=== PATIENT | male | born 1950 | race Caucasian/White ===

== ENCOUNTER → 2023-03-30 | Outpatient (CLI) | payer MEDICARE, OTHER, SELFPAY ==
--- NOTE | 2023-03-30 10:12 | EKG12_ITS ---
Test Reason : PRE OP Blood Pressure : / mmHG Vent. Rate : 069 BPM Atrial Rate : 069 BPM P-R Int : 128 ms QRS Dur : 134 ms QT Int : 428 ms P-R-T Axes : 083 -57 078 degrees QTc Int : 458 ms Normal sinus rhythm Right bundle branch block Left anterior fascicular block Bifascicular block Septal infarct , age undetermined Abnormal ECG Confirmed by BETSY SALCEDO, DAVID ([id number]), purchase request editor RAJINDER IRELAND ([id number]) on 04/03/2023 8:31:30 AM Referred By: Garrick Dixon Confirmed By:GIGI MEYER MD
[2023-03-30 11:24] LABS: Hematocrit 39.2 % (40-54); Hemoglobin 13.6 g/dL (13.0-16.5); Mean Corp Hgb Conc 34.7 g/dL (32-36); Mean Corpuscular Hgb 33.6 pg (27.0-32.0); Mean Corpuscular Volume 96.8 fL (80-94); Mean Platelet Vol. 9.2 fl (6.2-12.0); Platelet Count 222 K/mm3 (150-450); RBC Distribution Width SD 43.1 fl (35.1-43.9); Red Blood Count 4.05 M/mm3 (4.6-6.2); White Blood Count 10.9 K/mm3 (4.4-11.0)
[2023-03-30 11:53] LABS: Anion Gap 6 (5-15); BUN 19 mg/dL (7-18); BUN/Creat Ratio 18.8 RATIO (10-20); Calcium,Total 9.2 mg/dL (8.5-10.1); Chloride 104 mmol/L (98-107); Creatinine, Serum 1.01 mg/dL (0.70-1.30); EST Glomerular Filtration Rate 77 mL/min (>60); Est Glom Filt Rate - Afr Amer 93 mL/min (>60); Glucose 140 mg/dL (74-106); Potassium 3.9 mmol/L (3.5-5.1); Sodium Level 136 mmol/L (136-145)
== END | disposition home or self-care (01) ==
PROVIDERS: PCP Family Medicine; Referring Provider Urology; Visit Provider Urology
DX: Z01.810 Encounter for preprocedural cardiovascular examination (principal); Z01.812 Encounter for preprocedural laboratory examination
CPT/HCPCS: 36415; 80048; 85027; 93005

== ENCOUNTER → 2023-04-28 | Outpatient (CLI) | payer MEDICARE, OTHER, SELFPAY ==
--- NOTE | 2023-04-28 18:30 | CT_ITS ---
EXAM: CT ABDOMEN AND PELVIS WITHOUT AND WITH INTRAVENOUS CONTRAST CLINICAL INDICATION: BLADDER CANCER, HEMATURIA TECHNIQUE: Helically acquired images were obtained of the abdomen and pelvis without and with intravenous contrast. This CT exam was performed using one or more of the following dose reduction techniques: automated exposure control, adjustment of the mA and/or kV according to patient size, and/or use of iterative reconstruction technique. CONTRAST: IV-100 mL IsoVue 300 COMPARISON: No relevant prior studies available. FINDINGS: LOWER THORAX: Coronary artery calcifications. Lung bases are clear. No cardiomegaly. No significant pericardial effusion. ABDOMEN: LIVER: No significant abnormality. Homogeneous. No focal mass. GALLBLADDER AND BILE DUCTS: No significant abnormality. No calcified gallstones. No gallbladder distention or wall edema. No intra- or extrahepatic biliary ductal dilation. PANCREAS: No significant abnormality. No focal cystic or solid mass. SPLEEN: Splenic granulomas. Otherwise, normal spleen. ADRENALS: 7 mm low-attenuation lesion of the left adrenal gland is consistent with an adenoma. ACR White Paper guidelines (Lincoln et al. JACR 2017; 14(8):1896-5515) suggest no follow-up is necessary. KIDNEYS AND URETERS: No significant abnormality. Normal renal size and position. No hydronephrosis. STOMACH AND BOWEL: No bowel wall thickening or bowel obstruction.. PELVIS: APPENDIX: No evidence of acute appendicitis. BLADDER: Urinary bladder wall thickening, more focally anteriorly where it measures at least 1.8 cm in thickness likely consistent with the given history of bladder carcinoma. REPRODUCTIVE: Normal as visualized. No mass. ABDOMEN and PELVIS: INTRAPERITONEAL SPACE: No significant abnormality. No ascites or other fluid collection. No free air. BONES/JOINTS: Degenerative changes throughout the spine, pelvis, and hips. No suspicious lytic or blastic abnormality. SOFT TISSUES: No significant abnormality. No discrete abdominal or pelvic wall hernia. VASCULATURE: Atherosclerosis of the aorta. LYMPH NODES: No significant abnormality. No pelvic lymphadenopathy. CT/CT Abd/Pelvis W/WO Contrast IMPRESSION: Urinary bladder wall thickening, more focally anteriorly where it measures at least 1.8 cm in thickness likely consistent with the given history of bladder carcinoma. No pelvic lymphadenopathy is identified. No additional acute findings. Electronically Signed: Rasheed Merino DO at 22:41 EDT ,
== END | disposition home or self-care (01) ==
LOC: CT 18:28
PROVIDERS: PCP Family Medicine; Visit Provider Urology
DX: R31.21 Asymptomatic microscopic hematuria (principal); D41.4 Neoplasm of uncertain behavior of bladder
CPT/HCPCS: 74178; Q9967; A4216

== ENCOUNTER 2023-05-03 12:05 | Day surgery (SDC) | payer MEDICARE, OTHER, SELFPAY ==
[2023-04-21 10:22] LABS: Hemoglobin A1c 6.2 % (3.8-5.6)
[2023-05-03] MEDS: Lactated Ringers 1,000 ML 15 ML IV (12:59)
[2023-05-03 13:01] VITALS: BP 150/77; PULSE 89; RESP 18; TEMP 36.3; O2SAT 97; BMI 26.4
[2023-05-03 13:33] LABS: Bedside Glucose 148 mg/dL (74-106)
--- NOTE | 2023-05-03 13:50 | BLB_PTH ---
PATIENT: VERENA CHENG LOC: [facility] [place] U#:[id number] AGE/SX: 72/M ROOM: RE05/03/[address]: Dr. Garrick Dixon MD : 1950 BED: DIS: 05/03/2023 SPEC #: [id number] RECD: 05/03/23 15:12 STATUS: NATASHA RE #: [id number] ROSIBEL: 05/03/23 13:[address]: Garrick Dixon DEPT: SURGICAL PATHOLOGY RECD BY: Samanta Sky ENTERED: 05/04/23 09:07 SP TYPE: TURB OTHR DR: MD Dr. Grady Mendez MD Tissues: Urinary bladder, NOS Procedures: Surgery Specimen Level V HEADER OPERATION: Cysto, transurethral resection bladder PRE-OP DIAGNOSIS: Large bladder tumor TISSUE SUBMITTED: Bladder tumor MICROSCOPIC DIAGNOSIS Bladder tumor, transurethral resection: Invasive high-grade urothelial carcinoma. See cancer summary in the comment section. SJ:rg 05/05/2023 COMMENT BLADDER CANCER (TUR) SUMMARY Procedure: Transurethral resection of bladder tumor (TURBT) Tumor site: Not specified Histologic type: Papillary urothelial carcinoma, invasive Associated epithelial lesions: None identified Histologic grade: High grade 3/3 Tumor configuration: Papillary and invasive Muscularis propria presence: Muscularis propria is present. Lymphvascular invasion: Not identified Tumor extension: Tumor invades the lamina propria (subepithelial connective tissue) and suspicious for involvement by muscularis propria. Additional pathologic findings: None The above summary is in compliance with [employer] (CAP) Cancer Protocols Checklist and [place] Joint Committee on Cancer (AJCC), Staging Manual, 8th Ed. Most of the tumor consists of invasive tumor. Case has been reviewed in consultation with Dr. Hollins who concurs with the above diagnosis. IDC:AM MICROSCOPIC DESCRIPTION Slides are reviewed. GROSS DESCRIPTION Received in fixative is one container labeled with the patient's name and designated bladder tumor. The specimen consists of multiple irregular fragments of arredondo-brown, indurated tissue that in aggregate measure 7.5 x 3.0 x 0.3 cm. The specimen is totally submitted in three cassettes. / ADRIANA:sunil 05/04/2023 TC:0 CPT: 84365
[2023-05-03] MEDS: Cefazolin 2 GM in 0.9% Normal Saline (100mL Bag) 100 ML IV (14:15)
[2023-05-03] MEDS: MitoMYcin 40 MG in Syringe 1 EACH 2400 MG INSTILLAT (14:48)
--- NOTE | 2023-05-03 14:55 | PCM.HP.STD ---
HPI - General General Date of Service: 05/03/23 Chief Complaint: Bladder tumor [facility] Narrative VERENA CHENG, is a 72 M who presents for resection of an invasive looking bladder tumor. He had a preop CT scan that looks like at the dome of the bladder there is an invasive looking tumor today working to do resection but I told the patient the preoperative setting it may not be possible to do a complete resection that this may be mostly for to debulk as much as possible and for diagnosis and understands he may need further treatment. [facility] Medical History (Updated 05/03/23 @ 14:[address] Grarick Dixon MD) Alcohol use Back pain Bladder disease Cancer Diabetes Dietary restriction Former smoker High cholesterol History of echocardiogram Hypertension Neuropathy Prostate disease Wears glasses Wears hearing aid Home Medications aspirin 325 mg capsule 325 mg PO QHS 04/20/23 [History Last Taken 04/25/23] atorvastatin 20 mg tablet 20 mg PO QHS 04/20/23 [History Last Taken 05/03/23] finasteride 5 mg tablet 5 mg PO QHS 04/20/23 [History Last Taken 05/03/23] folic acid 0.8 mg capsule 0.8 mg PO QHS 04/20/23 [History Last Taken 05/03/23] gabapentin 300 mg capsule 300 mg PO QHS 04/20/23 [History Last Taken 05/03/23] hawthorn 500 mg capsule 500 mg PO QHS 04/20/23 [History Last Taken 05/03/23] losartan 50 mg tablet 50 mg PO QHS 04/20/23 [History Last Taken 05/03/23] metformin 500 mg tablet,extended release 24 hr 500 mg PO QHS 04/20/23 [History Last Taken 05/03/23] tamsulosin 0.4 mg capsule 0.4 mg PO QHS 04/20/23 [History Last Taken 05/03/23] ciprofloxacin HCl 500 mg tablet (Cipro) 500 mg PO BID #20 tabs 05/03/23 [Rx Last Taken Unknown] oxycodone 5 mg tablet 5 mg PO Q6H PRN pain 7 days #10 tabs 05/03/23 [Rx Last Taken Unknown] Allergy/AdvReac Type Severity Reaction Status Date / Time No Known Allergies Allergy Verified 04/20/23 09:55 Surgical History (Updated 04/20/23 @ 10:18 by Sepideh Church) History of cardiac catheterization Hx of discectomy Social History Smoking Status: Former smoker Vital Signs Vital Signs Vital Signs: 05/03/23 13:01 05/03/23 13:01 Temperature 97.4 F L Temperature Source Temporal Pulse Rate 89 Respiratory Rate 18 Respiratory Pattern Normal Blood Pressure 150/77 H Blood Pressure Mean 101 Blood Pressure Source Monitor Blood Pressure Position Semi-Fowlers Blood Pressure Location Right Arm Pulse Ox 97 Oxygen Delivery Method Room Air Weight Weight: 76.657 kg Body Mass Index (BMI) 26.4 Results Lab / Micro Data Labs: Laboratory Results - last 24 hr 05/03/23 12:46: POC Glucose 148 H
--- NOTE | 2023-05-03 14:56 | OP.PCM_ITS ---
Report of Operation Date of Procedure: 05/03/23 Pre-Operative Diagnosis: Invasive looking bladder tumor Post-Operative Diagnosis: Invasive looking bladder tumor Surgery/Procedure Performed:: Transurethral resection of the bladder and dilation of the urethra Description of Surgical Findings:: Patient was taken back to the operating room and a smooth induction of general anesthesia he was placed in dorsolithotomy position. Penis and testicles were prepped and draped in usual sterile fashion. I first went into the urethra with a an 18 Indonesian rigid cystourethroscope he had a count of a narrowed meatus and then went in the bulbar urethra he did have a slight narrowing was able to get through this with the scope then into the bladder and then in the top of the bladder in the dome of the bladder there was a large greater than 7 cm invasive looking tumor that was sessile in nature. I then removed the cystoscope and dilated the urethra with sounds from 18 Indonesian up to 26 Indonesian I then placed a 26 Indonesian continuous-flow resectoscope into the bladder once inside the bladder with the resectoscope and I resected this tumor in the dome of the bladder I resected the visible tumor down to the muscle fibers then I did resect into the muscle deep resection but it was not feasible to redoing a complete resection this was an invasive cancer resected as much as possible safe and then cauterized the resection site and then placed the catheter 18 Indonesian in the bladder and then we did place a post instillation Mitomycin-C into the bladder. But I think this patient is getting need further treatment he will probably need a radical cystectomy and removal of the entire bladder for complete removal of this cancer I do not think this is amenable to a partial cystectomy which is another consideration but just the way it looked him think this would be a feasible option for him. Section was completed cauterized the resection site Mello catheter placed we did Mitomycin-C afterwards and then anesthesia was reversed to be taken back to PACU in good condition we will drain the bladder after 45 minutes of the post and resection instillation and have to go home with a catheter follow-up in the office in 2 weeks to review the pathology report. Surgeon: Garrick Dixon Type of Anesthesia: General Drains: 18 fr mello Estimated Blood Loss (mL): 10 Admit VTE Documentation VTE Present on Admission: No VTE Mechan Device Prophylaxis: SCD's VTE Pharm Prophylaxis ordered?: No
--- NOTE | 2023-05-03 14:56 | PCM.DC ---
Discharge Instructions Diet Discharge Diet: No restrictions Activity Discharge Activity: Return to Normal Activity Dressing / Incision Catheter: Mello to leg bag and Mello to large bag Drain: [place] Follow Up Care Please Follow Up With: Garrick Dixon MD When: 10 days, call for appt, home with mello. Test Results: Test results from this visit will be discussed in further detail at your follow-up appointment, if applicable. Discharge Plan Admission Primary Reason for Your Visit: bladder tumor Attending Provider: Garrick Dixon Primary Care Provider: Grady Kraus Consulting Providers: Desmond Rodriguez Discharge Orders/Prescriptions Prescriptions: New ciprofloxacin HCl [Cipro] 500 mg tablet 500 mg PO BID Qty: 20 0RF oxycodone 5 mg tablet 5 mg PO Q6H PRN (Reason: pain) 7 Days Qty: 10 0RF Continued finasteride 5 mg tablet 5 mg PO QHS tamsulosin 0.4 mg capsule 0.4 mg PO QHS atorvastatin 20 mg tablet 20 mg PO QHS metformin 500 mg tablet extended release 24 hr 500 mg PO QHS losartan 50 mg tablet 50 mg PO QHS gabapentin 300 mg capsule 300 mg PO QHS folic acid 0.8 mg capsule 0.8 mg PO QHS hawthorn 500 mg capsule 500 mg PO QHS Held aspirin 325 mg capsule 325 mg PO QHS Hold Instructions: Resume on 05/17/23. Referrals / Follow Up: Garrick Dixon MD [Med Staff - Active Staff] - Grady Kraus MD [Primary Care Provider] - Disposition Disposition (needs filled in before D/C Order can be placed): Home, Self Care
[2023-05-03 15:05] VITALS: BP 150/77; BP 154/88; PULSE 74; RESP 16; TEMP 36.2; O2SAT 98
[2023-05-03 15:15] VITALS: BP 150/77; BP 167/83; PULSE 77; RESP 16; O2SAT 97
[2023-05-03 15:37] VITALS: BP 150/77; BP 172/78; PULSE 74; RESP 18; O2SAT 98
[2023-05-03 15:45] VITALS: BP 150/77; BP 152/91; PULSE 74; RESP 16; TEMP 36.1; O2SAT 98
[2023-05-03 15:45] LABS: Bedside Glucose 102 mg/dL (74-106)
[2023-05-03 16:33] VITALS: BP 150/77
== END 2023-05-03 16:43 | disposition home or self-care (01) ==
LOC: SDC 12:06 → AC 12:07
PROVIDERS: Anesthesiology; PCP Family Medicine; Referring Provider Urology; Visit Provider Urology
PROC: 0T5B8ZZ Destruction of Bladder, Via Natural or Artificial Opening Endoscopic (ICD-10-PCS; CPT 51720; principal; 2023-05-03 13:40)
DX: C67.1 Malignant neoplasm of dome of bladder (principal); E11.40 Type 2 diabetes mellitus with diabetic neuropathy, unspecified; I10 Essential (primary) hypertension; E78.00 Pure hypercholesterolemia, unspecified; Z79.82 Long term (current) use of aspirin; Z79.84 Long term (current) use of oral hypoglycemic drugs; Z79.899 Other long term (current) drug therapy; Z87.891 Personal history of nicotine dependence
CPT/HCPCS: 52240; 00912; 36415; 82962; 83036; 88307; J7120; J2405

== ENCOUNTER 2023-05-06 23:40 | Emergency (ER) | payer MEDICARE, OTHER, SELFPAY ==
[2023-05-06 23:41] VITALS: BP 178/69; PULSE 112; RESP 16; TEMP 36.4; O2SAT 100; BMI 28.4
--- NOTE | 2023-05-07 00:18 | EDS_ITS ---
HPI History of Present Illness Chief Complaint: Complaint Informant: patient Narrative Narrative: Patient is a 72-year-old male with a recent cystoscopy for bladder mass removal performed by Dr. Dixon, 3 days ago. He is continue to have some hematuria since. He is presenting today with sensation of needing to urinate and his Chow catheter not draining. He is quite uncomfortable and tearful upon arrival. He states his symptoms started around 730 tonight. He had not had this from before. He also is complaining of constipation since the surgery and penis pain at the urethra. Denies any fever or chills. Denies any other abdominal pain. Denies any nausea vomiting. No other complaints at this time. [facility] Medical History Alcohol use Back pain Bladder disease Cancer Diabetes Dietary restriction Former smoker High cholesterol History of echocardiogram Hypertension Neuropathy Prostate disease Wears glasses Wears hearing aid Home Medications aspirin 325 mg capsule 325 mg PO QHS 04/20/23 [History Last Taken 04/25/23] atorvastatin 20 mg tablet 20 mg PO QHS 04/20/23 [History Last Taken 05/03/23] finasteride 5 mg tablet 5 mg PO QHS 04/20/23 [History Last Taken 05/03/23] folic acid 0.8 mg capsule 0.8 mg PO QHS 04/20/23 [History Last Taken 05/03/23] gabapentin 300 mg capsule 300 mg PO QHS 04/20/23 [History Last Taken 05/03/23] hawthorn 500 mg capsule 500 mg PO QHS 04/20/23 [History Last Taken 05/03/23] losartan 50 mg tablet 50 mg PO QHS 04/20/23 [History Last Taken 05/03/23] metformin 500 mg tablet,extended release 24 hr 500 mg PO QHS 04/20/23 [History Last Taken 05/03/23] tamsulosin 0.4 mg capsule 0.4 mg PO QHS 04/20/23 [History Last Taken 05/03/23] ciprofloxacin HCl 500 mg tablet (Cipro) 500 mg PO BID #20 tabs 05/03/23 [Rx Last Taken Unknown] oxycodone 5 mg tablet 5 mg PO Q6H PRN pain 7 days #10 tabs 05/03/23 [Rx Last Taken Unknown] Allergy/AdvReac Type Severity Reaction Status Date / Time No Known Allergies Allergy Verified 04/20/23 09:55 Surgical History History of cardiac catheterization Hx of discectomy Social History Smoking Status: Former smoker ROS ROS ED Constitutional Constitutional ED: Denies chills or fever(s) Respiratory/Chest Respiratory/Chest: Denies cough Gastrointestinal Gastrointestinal: Reports abdominal pain and constipation; Denies nausea or vomiting Genitourinary Genitourinary ED: Reports other Details: Penile pain, Chow catheter not draining, urgency Musculoskeletal Musculoskeletal: Denies arthralgias or myalgias Integumentary Denies rash Neurologic Neurologic: Denies headache(s) or weakness Psychiatric Psychiatric: Reports anxiety Hematologic/Lymphatic Hematologic/Lymphatic: Denies easy bleeding EXAM Physical Exam Const Vital Signs: 05/06/23 23:41 Temperature 97.5 F L Temperature Source Temporal Pulse Rate 112 H Respiratory Rate 16 Blood Pressure 178/69 H Blood Pressure Mean 105 Pulse Ox 100 Oxygen Delivery Method Room Air Patient is evaluated after Chow catheter obstruction has been relieved Positive well nourished and well developed General Appearance ED: well developed and NAD; Negative for pallor HEENT Reports moist mucous membranes Eyes PERRL and EOMs intact bilaterally Neck supple Resp normal respiratory effort and clear to auscultation bilaterally Cardio regular rate, regular rhythm and no murmurs GI non-tender and non-distended Auscultation: normoactive bowel sounds Palpation: soft Narrative: Chow catheter in place, no discharge or drainage noted from the urethra Extremity normal to inspection General Extremety ED: Negative for edema General Extremity: Negative for edema Neuro oriented x3 Sensorium / Orientation: alert Psych mental status grossly normal Mood & Affect: anxious Skin General Skin Exam: Negative for jaundice or pallor MDM MDM MDM Narrative Medical decision making narrative: Patient is evaluated for Chow catheter malfunction associated discomfort. Chow catheter was flushed and patient had drainage of his bladder. He had resolution of his symptoms. We will send off for culture. As his symptoms will been going on for couple hours I do not think he requires lab work to check for associated BRYNN. I did offer to check but patient states he feels better and feels comfortable going home. Patient counseled to drink lots of fluids to try to keep his urine dilute. He will continue taking MiraLAX for constipation. His abdomen is soft is not having nausea and vomiting I do not suspect an obstruction. Patient given return precautions. We will follow-up with his urologist. Discharged home in stable and improved condition. Discharge Plan Triage Chief Complaint: Complaint ED Provider: Ambar Smith Dx/Rx/DC Orders Clinical Impression: Acute urinary retention, Complication, blocked Chow catheter Instructions: ED Chow Catheter, Care Prescriptions: No Action finasteride 5 mg tablet 5 mg PO QHS tamsulosin 0.4 mg capsule 0.4 mg PO QHS atorvastatin 20 mg tablet 20 mg PO QHS metformin 500 mg tablet extended release 24 hr 500 mg PO QHS losartan 50 mg tablet 50 mg PO QHS gabapentin 300 mg capsule 300 mg PO QHS aspirin 325 mg capsule 325 mg PO QHS Hold Instructions: Resume on 05/17/23. folic acid 0.8 mg capsule 0.8 mg PO QHS hawthorn 500 mg capsule 500 mg PO QHS ciprofloxacin HCl [Cipro] 500 mg tablet 500 mg PO BID Qty: 20 0RF oxycodone 5 mg tablet 5 mg PO Q6H PRN (Reason: pain) 7 Days Qty: 10 0RF Primary Care Provider: Grady Kraus Referrals: Garrick Dixon MD [Med Staff - Active Staff] - Keep Becka appointment Grady Kraus MD [Primary Care Provider] - Activity Restrictions/Additional Instructions: Drink lots of fluids. As we discussed continue taking MiraLAX. Try to drink it with 8 to 12 ounces of water. You may also use [id number]-yfl-buurtpa senna which is a laxative to help with your constipation. Return to the ER if you have further issues with your Chow catheter. As we discussed you can apply some Vaseline ointment or lubricating jelly to the tip of the penis to help with the localized irritation. Disposition Disposition: Home, Self Care
== END 2023-05-07 00:39 | disposition home or self-care (01) ==
LOC: ED 05-07 00:29
PROVIDERS: Emergency Provider Emergency Medicine; PCP Family Medicine; Visit Provider Emergency Medicine
DX: T83.091A Other mechanical complication of indwelling urethral catheter, initial encounter (principal); T83.84XA Pain due to genitourinary prosthetic devices, implants and grafts, initial encounter; E11.40 Type 2 diabetes mellitus with diabetic neuropathy, unspecified; Y84.6 Urinary catheterization as the cause of abnormal reaction of the patient, or of later complication, without mention of misadventure at the time of the procedure; R33.9 Retention of urine, unspecified; I10 Essential (primary) hypertension; E78.00 Pure hypercholesterolemia, unspecified; R31.9 Hematuria, unspecified; K59.00 Constipation, unspecified; Z79.82 Long term (current) use of aspirin; Z79.84 Long term (current) use of oral hypoglycemic drugs; Z79.899 Other long term (current) drug therapy; Z87.891 Personal history of nicotine dependence
CPT/HCPCS: 87086; 99284

== ENCOUNTER → 2023-06-09 | Outpatient (CLI) | payer MEDICARE, OTHER, SELFPAY ==
[2023-06-09] VITALS (9 sets, daily range): BP systolic 104–172; BP diastolic 50–118; PULSE 63–84; RESP 10–18; TEMP 36.4; O2SAT 95–99; BMI 25.8
--- NOTE | 2023-06-09 | IMM_PTH ---
PATIENT: VERENA CHENG LOC: [place] U#:[id number] AGE/SX: 72/M ROOM: RE06/09/[address]: Dr. Celestino Greco MD : 1950 BED: DIS: 06/09/2023 SPEC #: [id number] RECD: 06/12/23 13:15 STATUS: NATASHA REQ #: [id number] ROSIBEL: 06/09/23 00:[address]: Celestino Greco DEPT: IMMUNOHISTOCHEMISTRY RECD BY: Rafaela Horvath ENTERED: 06/12/23 13:19 SP TYPE: IMMUNO OTHR DR: MD Dr. Grady Oliveira MD Tissues: Axillary lymph node, NOS Procedures: BCL-2 (add) BCL-6 (add) CD10 (add) CD20 (add) CD23 (add) CD3 (add) CD43 (add) CD45 (add) CD5 (add) CD79A (add) CK8 (add) CYCLIN (add) KI-67 (add) MUM1 (add) C-MYC (add) Pankeratin (initial) PHYSICIAN & [place] [id number] SPECIMEN INFORMATION: Tissue Source: Right axillary lymph node Clinical Info: Right axillary node Specimen Number: [id number] #1 CPT code: 91937, 93972 x15 METHODOLOGY: Deparaffinized sections of prefer/formalin-fixed tissue or PAP/DQ stained slides are incubated with monoclonal/polyclonal antibodies/oligonucleotide probes. Localization is made via biotin free immunoperoxidase method. Appropriate controls are performed and reacted as expected. Results on target cell population are indicated in the following table: RESULTS: ANTIBODY / CLONE RESULT Block 1 AE1-3 (AE1/AE3/PCK26) negative CK8 (27xyumU49) negative CD3 (PS1) positive CD5 (SP10) positive CD20 (L26) positive CD43 (L60) positive CD45 (RP2/18) positive CD79a (11E3) positive CD10 (56C6) negative (positive only in germinal center) CD23 (1B12) positive (dendritic pattern) BCL-2 (bcl-2/100/D5) positive BCL-6 (LV825D/A8) negative (positive only in germinal center) Cyclin D1/BCL-1 (SP4) negative MUM1 (MRQ-43) negative C-MYC (Y69) negative Ki-67 (30-9) positive (reactive pattern) These tests were developed and their performance characteristics determined by [facility]. They may not have been cleared or approved by the U.S. Food and Drug Administration. The FDA has determined that such clearance or approval is not necessary. The above immunohistochemical/dualISH markers are ordered and reviewed by the Pathologist. INTERPRETATION: Right axillary lymph node, CT-guided biopsy: Lymph node tissue, polytypic in nature, negative for involvement by lymphoma or metastatic carcinoma. SJ:sunil 06/13/2023 Case has been reviewed in consultation with Dr. Hollins who concurs with the above diagnosis. IDC:AM
--- NOTE | 2023-06-09 08:09 | CT_ITS ---
PROCEDURE: CT GUIDED biopsy of the right axillary lymph node. DATE: June 09, 2023. INDICATION: Male, 72 years old. Abnormal right axillary lymph node. PHYSICIAN: Diego Horne M.D. RADIATION DOSAGE (If Supplied By Facility): CTDIvol = ( 17 ) mGy, DLP = ( 492.4 ) mGycm. Individualized dose optimization techniques were utilized. PROCEDURE: The risks, benefits, and alternatives to the procedure were explained to the patient. The specific risk of hemorrhage requiring further treatment or intervention was detailed and accepted. Follow-up instructions were discussed with the patient as well. Written informed consent was obtained. The patient was brought into the CT suite and placed in the supine position. . An appropriate entry site was identified. The overlying skin was prepped and draped in the usual sterile fashion. 1% lidocaine was administered subcutaneously for local anesthesia. Conscious sedation was performed. The patient received 1 mg of Versed and 25 mcg of fentanyl intravenously. Conscious sedation was started at 9:18 AM and terminate at 9:43 AM. The patient was independently monitored by the department nurse. Under CT guidance, a total of 6 passes were performed utilizing an 18-gauge core biopsy needle. The specimens were then placed in the appropriate fluid and transported to the laboratory for analysis. Hemostasis was obtained. The patient tolerated the procedure well without immediate complications. CT/Biopsy/Inj or Needle Placement IMPRESSION: Successful CT guided right axillary lymph node biopsy, as described above. Conscious sedation was performed. Electronically Signed: Diego Horne MD at 10:20 EDT ,
[2023-06-09] MEDS: 0.9% Saline Lock 10 ML Syringe IV (08:45)
[2023-06-09] MEDS: 0.9% Normal Saline (250mL Bag) 250 ML 15 ML IV (08:50)
[2023-06-09] MEDS: Midazolam 2 MG/2 ML Syringe IV (09:18)
[2023-06-09] MEDS: fentaNYL 100 MCG/2 ML Ampul IV (09:21)
--- NOTE | 2023-06-09 09:29 | ASPIGT_PTH ---
PATIENT: VERENA CHENG LOC: [place] U#:[id number] AGE/SX: 72/M ROOM: RE06/09/[address]: Dr. Celestino Greco MD : 1950 BED: DIS: 06/09/2023 SPEC #: [id number] RECD: 06/09/23 09:30 STATUS: NATASHA REShae #: [id number] ROSIBEL: 06/09/23 09:[address]: Celestino Greco DEPT: SURGICAL PATHOLOGY RECD BY: Samanta Sky ENTERED: 06/09/23 10:05 SP TYPE: ASP RAD OTHR DR: MD Dr. Grady Oliveira MD Tissues: LYMPH NODE BIOPSY Procedures: FNA Specimen Adequacy Special Stain Group II Surgery Specimen Level IV Imprint (control) HEADER OPERATION: CT-guided axillary lymph node biopsy PRE-OP DIAGNOSIS: Right axillary node TISSUE SUBMITTED: Right axillary node MICROSCOPIC DIAGNOSIS Right axillary lymph node, CT-guided core biopsy: Lymph node tissue, polytypic in nature, negative involvement by lymphoma or metastatic carcinoma. See comment. SJ:rg 06/13/2023 COMMENT The specimen is evaluated at the time of biopsy by Dr. Ghotra. Immediate Evaluation = Numerous lymphocytes are noted. Immunohistochemistry ([id number]) supports the above diagnosis. Flow cytometry study from [facility] shows no evidence of B-cell or T-cell lymphoma. The complete report is viewable in patient's EMR. Correlation with clinical, radiologic findings and appropriate follow up are necessary. This case was reviewed and diagnosis discussed with Dr. Snell on 06/15/2023. Case has been reviewed in consultation with Dr. Hollins who concurs with the above diagnosis. IDC:AM MICROSCOPIC DESCRIPTION Slides are reviewed. GROSS DESCRIPTION Received in fixative is one container labeled with the patient's name and designated right axillary lymph node. The specimen consists of multiple irregular fragments of arredondo soft tissue that in aggregate measure 0.5 x 0.1 x <0.1 cm. The specimen is totally submitted in one cassette. Two touch imprints are prepared at the time of core biopsy. A core is also submitted for flow cytometry study. The formalin from the specimen is submitted for cell block in cassette 2. / SJ:sunil 06/09/2023 TC:5 CPT: 99270, 21359
[2023-06-09] MEDS: Lidocaine 2% (20 ml mdv) 20 ML Vial INFILT (09:32)
--- NOTE | 2023-06-09 10:28 | PRO.PCM_ITS ---
Procedure Report Date of Procedure: 06/09/23 Assessment & Plan Assessment/Plan (1) Axillary adenopathy: Procedures Radiology Radiology CT Procedures: 22716 Biopsy Lymph Node/gland/etc
--- NOTE | 2023-06-09 10:28 | PCM.OP.PRO ---
Procedure Report Date of Procedure: 06/09/23 Assessment & Plan Assessment/Plan (1) Axillary adenopathy: PLAN: PROCEDURE: CT GUIDED CORE LYMPH NODE BIOPSY ORDERING PROVIDER: Dr. Greco INDICATION: Male, 72 years old. Right axillary node reactive on PET. PROVIDER: RAMAKRISHNA Ren CONSENT: Written informed consent was obtained having explained the risks, benefits and alternatives in detail with the patient field who accepted the risks and agreed to proceed. Laboratory review and clinical assessment was performed. PRE-PROCEDURE SEDATION ASSESSMENT: Current history and physical dictated by referring physician and reviewed. No clinical changes since date of exam. Patient has an ASA Class of 1. PROCEDURAL SEDATION PROTOCOL: The Drugs used were: 1 mg Versed, IV, and 25 mcg Fentanyl, IV. The sedation time was: 25 minutes, starting at 0918 and terminated at 0943. The procedural sedation protocol was independently monitored by the department nurse. RADIATION DOSAGE (If Supplied By Facility): CTDIvol = 16.498 mGy, DLP = 492.40 mGycm Individualized dose optimization techniques were used for this CT. TECHNIQUE: The patient was placed in a supine position. A noncontrast CT was performed to localize the lesion in the right axilla. The skin surface was prepped and draped in a sterile fashion. 2% lidocaine was used for local anesthesia. Using CT guidance, a 18-gauge coaxial biopsy device was advanced to the periphery of the lesion. A total of 5 core specimens were obtained. Specimens were microscopically reviewed by pathology in the CT suite and placed in formalin solution, as well as RPMI. The biopsy needle was removed and a sterile dressing was applied to the biopsy site. The patient tolerated the procedure well without adverse event. A negative biopsy does not exclude malignancy. Further imaging or clinical followup based on patient condition and degree of clinical suspicion for malignancy. Suggest rebiopsy, if biopsy results do not match with clinical scenario. IMPRESSION: 1. CT directed core needle biopsy of the right axillary lymph node using CT image guidance with image documentation as described. Pathology results are pending. 2. Procedural Sedation protocol utilized with independent monitoring by the department nurse. Procedures Radiology Radiology CT Procedures: 76816 Biopsy Lymph Node/gland/etc
== END | disposition home or self-care (01) ==
LOC: CT 08:04
PROVIDERS: PCP Family Medicine; Referring Provider Internal Medicine Medical Oncology; Visit Provider Internal Medicine Medical Oncology
DX: D72.820 Lymphocytosis (symptomatic) (principal); C67.8 Malignant neoplasm of overlapping sites of bladder; R94.02 Abnormal brain scan; R59.9 Enlarged lymph nodes, unspecified
CPT/HCPCS: 38505; 77012; 88172; 88305; 88313; 88341; 88342; 99156; J7050; A4216

== ENCOUNTER 2023-06-26 08:18 | Day surgery (SDC) | payer MEDICARE, OTHER, SELFPAY ==
[2023-06-26] MEDS: Lactated Ringers 1,000 ML 15 ML IV (08:46)
[2023-06-26 08:48] VITALS: BP 120/70; PULSE 80; RESP 18; TEMP 36.6; O2SAT 100; BMI 26.9
--- NOTE | 2023-06-26 10:05 | LYMN_PTH ---
PATIENT: VERENA CHENG [place] [facility] [place][id number] AGE/SX: 72/M ROOM: RE06/26/[address]: Dr. Darrell Cisneros MD : 1950 BED: DIS: 06/26/2023 SPEC #: [id number] RECD: 06/26/23 11:37 STATUS: NATASHA JESS #: [id number] ROSIBEL: 06/26/23 10:[address]: Darrell Cisneros DEPT: SURGICAL PATHOLOGY RECD BY: Maria Teresa Love ENTERED: 06/26/23 12:38 SP TYPE: LYMPH NODE OTHR DR: Dr. Grady Kraus MD Tissues: Lymph node of neck, NOS Procedures: Surgery Specimen Level IV HEADER OPERATION: Excisional right neck mass biopsy PRE-OP DIAGNOSIS: Right neck mass, bladder carcinoma TISSUE SUBMITTED: Right neck lymph node - sent fresh MICROSCOPIC DIAGNOSIS Right neck lymph node, excisional biopsy: Benign lymph node tissue with reactive changes. Negative for metastatic carcinoma or involvement by lymphoma. See comment. COMMENT The fresh specimen is evaluated immediately by Dr. Ghotra. Immediate Evaluation = Numerous lymphocytes are noted. Flow cytometry studies from [facility] show no evidence of a B-cell or T-cell lymphoma. The complete report is viewable in patient's EMR. Correlation with clinical findings and appropriate follow up are necessary. MICROSCOPIC DESCRIPTION Slides are reviewed. GROSS DESCRIPTION Received fresh is one container labeled with the patient name and designated right neck lymph node. The specimen consists of one ovoid nodule that measures 1.5 x 1.2 x 1.2 cm. The specimen is serially sectioned. A section is submitted for flow cytometry studies. Two touch imprints are prepared. The specimen is totally submitted in one cassette. /ADRIANA:vincenzo 06/26/23 Tc:5 CPT: 03570, 16021
--- NOTE | 2023-06-26 10:38 | OP.PCM_ITS ---
Report of Operation Date of Procedure: 06/26/23 Pre-Operative Diagnosis: neck mass Post-Operative Diagnosis: same Surgery/Procedure Performed:: Excision neck mass Description of Surgical Findings:: lymph node Surgeon: Darrell Cisneros Type of Anesthesia: General Anesthesiologist: Jose Smith Drains: 1 corrine Estimated Blood Loss (mL): minimal Description of Procedure: The patient was taken to the operating room on 06/26/2023. He was placed in the supine position on the operating room table. He was given sufficient general anesthesia. The neck was prepped and draped sterilely. 1% lidocaine with epinephrine was injected into the skin overlying the intended incision. A 3 cm incision was made with a 15 blade approximately 2 fingerbreadths below the mandible overlying the mass. The incision was carried down through the skin and subcutaneous tissue. Hemostasis was achieved with bipolar cautery. Next, the platysma was identified. This was incised sharply. Fascia was dissected sharply. The lymph node was identified. I then circumferentially dissected ar ound the lymph node. Hemostasis was achieved with bipolar cautery. Vessels were clamp, cut and ligated with 3-0 silk The node was then removed and sent for lymph node protocol. I irrigated the wound with saline. Hemostasis was again achieved with bipolar cautery. The platysma was closed with interrupted 3-0 Vicryl. A corrine drain was placed. It was sewn to the skin with 3-0 nylon. The subcutaneous tissue was closed with 4-0 Vicryl. The skin was closed with a running 6-0 nylon. A pressure dressing was then applied. The patient was then awoken and brought to the recovery room in stable condition. Blood loss minimal, replacement none. Sponge, needle, and instrument count were correct at the end of the procedure.
[2023-06-26] MEDS: Lidocaine 1% /Epi 1:100 (50ml) 50 ML VIAL (10:55)
[2023-06-26 10:58] LABS: Bedside Glucose 160 mg/dL (74-106)
--- NOTE | 2023-06-26 11:48 | PCM.DC.SUM ---
Providers Primary Care Physician: Dr. Grady Kraus MD Reason For Visit: Biopsy, Mass, open neck biopsy Medications at Discharge Home Medications aspirin 325 mg capsule 325 mg PO QHS 04/20/23 atorvastatin 20 mg tablet 20 mg PO QHS 04/20/23 finasteride 5 mg tablet 5 mg PO QHS 04/20/23 folic acid 0.8 mg capsule 0.8 mg PO QHS 04/20/23 gabapentin 300 mg capsule 300 mg PO QHS 04/20/23 hawthorn 500 mg capsule 500 mg PO QHS 04/20/23 losartan 50 mg tablet 50 mg PO QHS 04/20/23 metformin 500 mg tablet,extended release 24 hr 500 mg PO QHS 04/20/23 tamsulosin 0.4 mg capsule 0.4 mg PO QHS 04/20/23 oxycodone 5 mg tablet 5 mg PO Q6H PRN pain 7 days #10 tabs 05/03/23 phenazopyridine 100 mg tablet (Pyridium) 100 mg PO TID PRN pain 05/22/23 Weight / BMI Weight Weight: 78.018 kg Body Mass Index (BMI) 26.9 ABG / Lab / Microbiology Data Laboratory: Laboratory Results - last 24 hr 06/26/23 08:39: POC Glucose 160 H D/C Instructions Discharge Diet: No restrictions Discharge Activity: Return to Normal Activity Additional Activity Instructions: Leave dressing in place. Keep the dressing dry. Please Follow Up With: Darrell Cisneros MD When: TOMORROW FOR DRESSING AND DRAIN REMOVAL. CALL TODAY FOR AN APPOINTMENT TOMORROW. Meaningful Use Info Meaningful Use Diagnoses (Choose all that apply): None applicable Discharge Plan Admission Attending Provider: Darrell Cisneros Primary Care Provider: Grady Kraus Discharge Orders/Prescriptions Prescriptions: No Action phenazopyridine [Pyridium] 100 mg tablet 100 mg PO TID PRN (Reason: pain) finasteride 5 mg tablet 5 mg PO QHS tamsulosin 0.4 mg capsule 0.4 mg PO QHS atorvastatin 20 mg tablet 20 mg PO QHS metformin 500 mg tablet extended release 24 hr 500 mg PO QHS losartan 50 mg tablet 50 mg PO QHS gabapentin 300 mg capsule 300 mg PO QHS aspirin 325 mg capsule 325 mg PO QHS Hold Instructions: Resume on 05/17/23. Patient Comments: LAST DOSE 06/18/23 FOR SURGERY ON 06/26/23 folic acid 0.8 mg capsule 0.8 mg PO QHS hawthorn 500 mg capsule 500 mg PO QHS oxycodone 5 mg tablet 5 mg PO Q6H PRN (Reason: pain) 7 Days Qty: 10 0RF Referrals / Follow Up: Grady Kraus MD [Primary Care Provider] - Disposition Disposition (needs filled in before D/C Order can be placed): Home, Self Care
[2023-06-26 11:54] VITALS: BP 120/70; BP 165/75; PULSE 64; RESP 16; TEMP 36.1; O2SAT 96
[2023-06-26 12:00] VITALS: BP 120/70; BP 170/77; PULSE 59; RESP 16; O2SAT 95
[2023-06-26 12:14] VITALS: BP 120/70; BP 162/83; PULSE 56; RESP 16; TEMP 36.4; O2SAT 98
[2023-06-26 12:35] VITALS: BP 120/70
== END 2023-06-26 13:05 | disposition home or self-care (01) ==
LOC: SDC 08:19 → AC 08:21
PROVIDERS: PCP Family Medicine; Referring Provider Otolaryngology; Visit Provider Otolaryngology
PROC: (CPT 38720; principal; 2023-06-26 09:50)
DX: R22.1 Localized swelling, mass and lump, neck (principal); E11.9 Type 2 diabetes mellitus without complications; Z79.82 Long term (current) use of aspirin; Z79.899 Other long term (current) drug therapy; Z79.84 Long term (current) use of oral hypoglycemic drugs; I10 Essential (primary) hypertension
CPT/HCPCS: 38720; 00320; 82962; 88305; J7120; J2405

== ENCOUNTER → 2023-09-25 | Outpatient (CLI) | payer MEDICARE, OTHER, SELFPAY ==
[2023-09-25 11:02] LABS: Hematocrit 38.1 % (40-54); Hemoglobin 13.1 g/dL (13.0-16.5); Mean Corp Hgb Conc 34.4 g/dL (32-36); Mean Corpuscular Hgb 33.2 pg (27.0-32.0); Mean Corpuscular Volume 96.7 fL (80-94); Mean Platelet Vol. 8.8 fl (6.2-12.0); Platelet Count 159 K/mm3 (150-450); RBC Distribution Width CV 12.2 % (11.6-14.6); RBC Distribution Width SD 43.8 fl (35.1-43.9); Red Blood Count 3.94 M/mm3 (4.6-6.2); White Blood Count 3.8 K/mm3 (4.4-11.0)
--- OUTSIDE RECORDS SUMMARY | 2023-09-25 11:02 | XMS RPT_ITS | CCD ---
Author Name Unknown Address [address] [place] [address] Organization [facility] Care Team Providers Care Ediphone Operator Name Role Phone Haley Lucio MD Primary Care Provider HALEY LUCIO Referring Unavailable HALEY LUCIO Primary Care Unavailable HALEY LUCIO Attending Unavailable HALEY LUCIO Primary Care Unavailable HALEY LUCIO Referring Unavailable HALEY LUCIO Primary Care Unavailable HALEY LUCIO Primary Care Unavailable HALEY LUCIO Referring Unavailable HALEY LUCIO Primary Care Unavailable HALEY LUCIO Attending Unavailable HALEY LUCIO Attending Unavailable HALEY LUCIO Primary Care Unavailable HALEY LUCIO Referring Unavailable LOUIS SHIN Attending Unavailable HALEY LUCIO Primary Care Unavailable Allergies Allergy Classification Reported Allergen(s) Allergy Type Date of Onset Reaction(s) Facility (20 sources) Isosorbide; Translations: [ISOSORBIDE MONONITRATE] Drug Allergy 05-14-2010 Intolerance [facility] (20 sources) Metoprolol; Translations: [METOPROLOL SUCCINATE] Drug Allergy 05-14-2010 Intolerance [facility] Medications Completed/Discontinued Medications Medication Drug Class(es) Dates Sig (Normalized) Sig (Original) aspirin 325 mg delayed release oral tablet (19 sources) Platelet Aggregation Inhibitor, Nonsteroidal Anti-inflammatory Drug Start: 05-10-2010 aspirin(ECOTRIN 325 MG TAB) Indications: Coronary atherosclerosis of hoopa coronary artery Take one(1) tablet daily. 0 05/10/2010 Active Problems Active Problems Problem Classification Problem Date Documented Da te Episodic/Chronic Cancer of bladder (2 sources) Malignant tumor of urinary bladder; Translations: [Malignant neoplasm of bladder, unspecified] Onset: 07-18-2023 07-18-2023 Chronic Complication of device; implant or graft (2 sources) Obstructed indwelling urinary catheter; Translations: [Other mechanical complication of indwelling urethral catheter, initial encounter] Onset: 07-18-2023 07-18-2023 Episodic Coronary atherosclerosis and other heart disease (20 sources) Coronary atherosclerosis; Translations: [Atherosclerotic heart disease of hoopa coronary artery with unspecified angina pectoris] Onset: 12-21-2006 Chronic Diabetes mellitus with complications (20 sources) Type 2 diabetes mellitus; Translations: [Type 2 diabetes mellitus with unspecified complications] Onset: 10-04-2018 Chronic Disorders of lipid metabolism (20 sources) Mixed hyperlipidemia; Translations: [Mixed hyperlipidemia] Onset: 12-21-2006 Chronic Essential hypertension (1 source) Hypertensive disorder; Translations: [Essential (primary) hypertension] Chronic Hyperplasia of prostate (6 sources) Benign prostatic hyperplasia; Translations: [Benign prostatic hyperplasia with lower urinary tract symptoms] Onset: 11-22-2022 Chronic Neoplasms of unspecified nature or uncertain behavior (3 sources) Neoplasm of bladder; Translations: [Neoplasm of unspecified behavior of bladder] Onset: 05-11-2023 04-20-2023 Episodic Other diseases of bladder and urethra (2 sources) Disorder of bladder; Translations: [Bladder disorder, unspecified] Onset: 07-18-2023 07-18-2023 Chronic Other skin disorders (1 source) Skin nodule; Translations: [Localized swelling, mass and lump, unspecified] Episodic Past or Other Problems Problem Classification Problem Date Documented Da te Episodic/Chronic Diabetes mellitus without complication (19 sources) Increased glucose level; Translations: [Other abnormal glucose] Onset: 07-14-2014 07-14-2014 Episodic Genitourinary symptoms and ill-defined conditions (7 sources) Scalding pain on urination ; Translations: [Dysuria] Onset: 12-13-2022 Episodic Results Test Name Value Interpretation Reference Range Facil ity Vital Signs Date Time Vital Sign Value Performing Clinician Carie mendes 04-20-2023 13:40-0400 Body weight 76.79 kg Haley Lucio MD Work Phone: [facility] 04-20-2023 13:40-0400 Diastolic blood pressure 74 mm[Hg] Haley Lucio MD Work Phone: [facility] 04-20-2023 13:40-0400 Heart rate 76 /min Haley Lucio MD Work Phone: [facility] 04-20-2023 13:40-0400 Respiratory rate 16 /min Haley Lucio MD Work Phone: [facility] 04-20-2023 13:40-0400 Systolic blood pressure 122 mm[Hg] Haley Lucio MD Work Phone: [facility] 12-09-2022 15:12-0400 Diastolic blood pressure 82 mm[Hg] Haley Lucio MD Work Phone: [facility] 12-09-2022 15:12-0400 Systolic blood pressure 144 mm[Hg] Haley Lucio MD Work Phone: [facility] 12-09-2022 15:10-0400 Body weight 74.84 kg Haley Lucio MD Work Phone: [facility] 12-09-2022 15:10-0400 Heart rate 80 /min Haley Lucio MD Work Phone: [facility] 12-09-2022 15:10-0400 Respiratory rate 16 /min Haley Lucio MD Work Phone: [facility] 01-11-2022 14:07-0400 Body weight 84.46 kg Haley Lucio MD Work Phone: [facility] 01-11-2022 14:07-0400 Diastolic blood pressure 80 mm[Hg] Haley Lucio MD Work Phone: [facility] 01-11-2022 14:07-0400 Heart rate 68 /min Haley Lucio MD Work Phone: [facility] 01-11-2022 14:07-0400 Respiratory rate 16 /min Haley Lucio MD Work Phone: [facility] 01-11-2022 14:07-0400 Systolic blood pressure 150 mm[Hg] Haley Lucio MD Work Phone: [facility] Encounters Encounter Date Encounter Type Care Provider Facility Start: 07-20-2023 Telephone encounter Haley yu MD Work Phone: [facility] Procedures Date Procedure Procedure Detail Performing Clinician Start: 04-20-2023 Ecg routine ecg w/le ast 12 lds i&r only [facility] Provider Start: 12-09-2022 Urnls dip stick/tabl et rgnt auto w/o microscopy Haley Lucio MD Work Phone: Start: 01-20-2021 Adult depression screening assessment Haley Lucio MD Work Phone: Plan of Treatment Date Care Activity Detail Author Start: 04-20-2024 ANNUAL PCP TEAM [employer]SEM[employer]ER JONE DISEASE VISIT ANNUAL PCP TEAM CHRONIC DISEASE VISIT [facility] Start: 04-20-2024 BP CONTROLLED (<130/80) BP CONTROLLE D (<130/80) [facility] Start: 04-03-2024 Hepatitis C antibody , confirmatory test DILATED RETINAL EXAM [facility] Start: 03-10-2024 ANNUAL PCP TEAM [employer] ASSEM[employer]ER JONE DISEASE VISIT ANNUAL PCP TEAM CHRONIC DISEASE VISIT [facility] Start: 12-10-2023 ANNUAL PCP TEAM [employer]ER[employer] ASSEMBLER JONE DISEASE VISIT ANNUAL PCP TEAM CHRONIC DISEASE VISIT [facility] Start: 12-10-2023 COLORECTAL CANCER SCREENING COLORECTAL CANCER SCREENING [facility] Immunizations Immunization Date Immunization Notes Care Provider Fa cility 04-23-2020 influenza, high dose seasonal, preservative-free Hlaey Lucio MD Work Phone: [facility] 04-23-2020 influenza virus vacc ine, unspecified formulation Haley Lucio MD Work Phone: [facility] 05-07-2019 influenza, high dose seasonal, preservative-free Haley Lucio MD Work Phone: [facility] 05-07-2019 pneumococcal polysaccharide vaccine, 23 valent Haley Lucio MD Work Phone: [facility] 05-01-2018 influenza, high dose seasonal, preservative-free Haley Lucio MD Work Phone: [facility] 05-01-2018 pneumococcal conjuga te vaccine, 13 valent Haley Lucio MD Work Phone: [facility] 06-01-2016 influenza, high dose seasonal, preservative-free Haley Lucio MD Work Phone: [facility] 06-30-2014 influenza, seasonal, injectable Haley Lucio MD Work Phone: [facility] 07-16-2013 influenza virus vacc ine, unspecified formulation Haley Lucio MD Work Phone: [facility] Work Phone: 06-27-2012 influenza virus vacc ine, unspecified formulation Haley Lucio MD Work Phone: [facility] 06-27-2012 tetanus toxoid, redu guero diphtheria toxoid, and acellular pertussis vaccine, adsorbed Haley Lucio MD Work Phone: [facility] Work Phone: Payers Date Payer Category Payer Medicare [id number] 2019 Unknown MMO MMO MEDICARE SUPPLEMENT [id number] 2019-Present [phone] [address] [place] [address] Indemnity [id number] 2019 Unknown MMO MMO MEDICARE SUPPLEMENT [id number] 2019-Present [phone] [address] [place] [address] Indemnity [id number] 2006 Medicare MEDICARE MEDICAR E A AND B [id number] 2006-Present [phone] [place] [address] Medicare [id number] 2006 Medicare MEDICARE MEDICAR E A AND B [id number] 2006-Present [phone] [place] [address] Medicare [id number] 2006 Medicare [id number] Social History Date Type Detail Facility Start: 10-04-2018 End: 12-09-2022 Tobacco smoking status NHIS Ex-smoker [facility] End: 05-23-2006 History of tobacco use Current smoker [facility] Start: 01-25-2021 End: 06-26-2023 Alcohol intake Current non-drinker of alcohol (finding) [facility] Start: 07-20-2020 End: 12-08-2022 History SDOH Alcohol Frequency 2 [facility] Start: 07-20-2020 End: 12-08-2022 History SDOH Alcohol Std Drinks 1 [facility] Start: 11-11-2019 End: 12-08-2022 History SDOH Social Connections Phone 5 [facility] Start: 11-11-2019 End: 12-08-2022 History SDOH Social Connections Living 4 [facility] Start: 07-20-2020 End: 12-08-2022 History SDOH Physical Activity DPW 0 [facility] Start: 11-10-2019 Education 12 [facility] Start: 1950 Sex Assigned At Not on file [facility] Start: 01-01-2022 End: 01-11-2022 Exposure to SARS-CoV-2 (event) Not sure [facility] End: 05-23-2006 History of tobacco use Cigarette Smoker [facility] Start: 10-04-2018 End: 12-09-2022 Tobacco use and exposure Smokeless tobacco non-user [facility] Start: 12-08-2022 History SDOH Alcohol Frequency 98 [facility] Start: 12-08-2022 End: 03-10-2023 History of Social function [facility] Start: 12-08-2022 End: 03-10-2023 Social connection and isolation panel [facility] Active Member of [facility] bs or Organizations Not on file [facility] Are you now , , , , never or living with a partner? [facility] How often do you hav e 6 or more drinks on 1 occasion? Never [facility] Do you feel stress - tense, restless, nervous, or anxious, or unable to sleep at night because your mind is troubled all the time - these days [OSQ] Not at all [facility] (I/We) worried wheth er (my/our) food would run out before (I/we) got money to buy more. Never true [facility] In the past 12 month s, was there a time when you were not able to pay the mortgage or rent on time? No [facility] Clinical Notes 01-05-2022 to 07-21-2023 Telephone Encounter - Sherin Hooker Ma - 07/21/2023 8:25 AM ESTTelephone Encounter - Sherri Milian Ma - 07/20/2023 10:34 AM ESTTelephone Encounter - Sherin Hooker Ma - 07/18/2023 10:21 AM EST Note Date & Type Note Facility 07-21-2023 Miscellaneous Notes Form completed and faxed back to information below. Sherin Hooker Ma Type of letter/form/fax request - [facility] Form received from fax on 1 floor and placed on MD desk (Dr. Lucio) for completion. Completed form needs to be faxed to [facility] at [phone]. Route to PR when form completed for processing documented in this encounter [facility] 07-18-2023 Miscellaneous Notes Porsha with [facility] calls to request Demographics be faxed to them so patient can be contacted. Demographics faxed to [phone] per request. Dorothy Ernandez, RN Pt notified via [employer] that paperwork has been faxed to number provided. OV and med list with current problems faxed. Sherin Hooker Ma OK to send 12/11 note (printed) and med list/history list Haley Lucio MD documented in this encounter [facility] 04-20-2023 Note HNO ID: [id number] Author: Haley Lucio MD Service: ? Author Type: Physician Type: Progress Notes Filed: 04/20/2023 2:13 PM Note Text: Chief Complaint Patient presents with: Pre-Op Exam: TUR-BT Dr. Dr. Dixon HPI Verena Cheng is a 72 year old male who presents here today for a Pre-op appt. Pt here today cardiac clearance for surgery. Pt currently scheduled with Dr. Dixon for TUR-BT on 05/03/23. Office received a fax with an abnormal EKG and requested clearance for surgery. Pt currently does not follow Cardiology. Hx of CAD, had heart cath done over 20 years ago. On current regimen of Losartan 50 mg once daily, Lipitor 20 mg once, Nitro 0.4 mg prn and Aspirin 325 mg once daily. He denies any chest pains, dizziness, or SOB. Denies any unusual SOB or chest pains with exertion. No limitations on activity. Denies any problems in the past with surgeries, no issues with general anesthesia. Past medical history, appointments, medications, allergies reviewed. 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, unspecified whether hoopa or transplanted heart (HCC) Benign prostatic hyperplasia with lower urinary tract symptoms, symptom details unspecified Burning with urination Coronary atherosclerosis of unspecified type of vessel, hoopa or graft Coronary artery disease Hypertension, unspecified type Microscopic hematuria 12/09/2022 Mixed hyperlipidemia Hyperlipidemia Type 2 diabetes mellitus with complication, without long-term current use of insulin ([facility]) Previous Surgical History PAST SURGICAL HISTORY Procedure Laterality Date LEFT HEART CATH,PERCUTANEOUS 1997 Cardiac cath, L heart Family History FAMILY HISTORY Problem Relation Age of Onset Diabetes Mother Coronary Artery Disease Father COPD Sister No Known Problems Brother Heart Brother Alcohol abuse Brother No Known Problems Maternal Grandmother No Known Problems Maternal Grandfather No Known Problems Paternal Grandmother No Known Problems Paternal Grandfather Patient Allergies ALLERGIES Allergen Reactions Imdur [Isosorbide M* Intolerance Headache Toprol Xl [Metoprol* Intolerance Open mouth sores Current Medications Current Outpatient Medications on File Prior to Visit Medication Sig losartan (COZAAR) 50 mg tablet Take 1 tablet by mouth once daily. gabapentin (NEURONTIN) 300 mg capsule Take 1 capsule by mouth daily at bedtime for 90 days. finasteride (PROSCAR) 5 mg tablet Take 1 tablet by mouth once daily. tamsulosin (FLOMAX) 0.4 mg Take 1 capsule by mouth daily at bedtime. metFORMIN ER (GLUCOPHAGE XR) 500 mg 24 hr tablet Take 1 tablet by mouth daily with breakfast. atorvastatin (LIPITOR) 20 mg tablet Take 1 tablet by mouth once daily. nitroglycerin sublingual (NITROQUICK) 0.4 mg SL tablet Dissolve 1 tablet under the tongue as needed for chest pain. DISSOLVE ON TONGUE FOR CHEST PAIN. IF NO PAIN RELIEF, CALL 911 aspirin(ECOTRIN 325 MG TAB) Take one(1) tablet daily. No current facility-administered medications on file prior to visit. Social History Social History Tobacco Use Smoking status: Former Types: Cigarettes Quit date: 05/23/2006 Years since quittin.9 Smokeless tobacco: Never Vaping Use Vaping Use: Never used Substance Use Topics Alcohol use: No Drug use: No EXAM: BP 122/74 Pulse 76 Resp 16 Wt 76.8 kg (169 lb 4.8 oz) BMI 26.52 kg/m? General Appearance: Well appearing, alert, in no acute distress, well-hydrated, well nourished.. Lungs: Lungs clear to auscultation. No wheezing, rhonchi, rales.. Heart: RRR without murmur, gallop, or rubs. No ectopy. Health Maintenance List ABDOMINAL AORTIC ANEURYSM SCREENING Never done BP CONTROLLED (<130/80) Never done SHINGRIX VACCINE(1 of 2) Never done DIABETIC FOOT EXAM due on 01/23/2020 COVID-19 VACCINE(3 - Pfizer series) due on 06/10/2021 DTAP,TDAP,TD(2 - Td or Tdap) due on 06/27/2022 INFLUENZA(1) due on 09/14/2023 COLORECTAL CANCER SCREENING due on 12/10/2023 HEPATITIS C SCREENING due on 12/10/2023 HBA1C due on 05/24/2023 URINE ALBUMIN:CREATININE RATIO due on 11/23/2023 LDL CHOLESTEROL due on 11/23/2023 ANNUAL PCP TEAM CHRONIC DISEASE VISIT due on 03/10/2024 DILATED RETINAL EXAM due on 04/03/2024 ADVANCE DIRECTIVE DISCUSSION Completed DEPRESSION ASSESSMENT Completed PNEUMOCOCCAL: 65+ Completed Data reviewed Outside EKG and labs done at [facility] 03/30/[address] Dixon EKG today shows NSR, RBBB, left anterior fascicular block ASSESSMENT/PLAN: 1. Pre-op exam - ICD9: V72.84, ICD10: Z01.818 (primary diagnosis) EKG checked today in office; no acute changes, no cardiac symptoms I feel he is medically cleared for the planned surgery 2. 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 [facility] 04-20-2023 History of Presen t illness Narrative Chief Complaint Patient presents with: Pre-Op Exam: TUR-BT Dr. Dr. Dixon HPI Verena Cheng is a 72 year old male who presents here today for a Pre-op appt. Pt here today cardiac clearance for surgery. Pt currently scheduled with Dr. Dixon for TUR-BT on 05/03/23. Office received a fax with an abnormal EKG and requested clearance for surgery. Pt currently does not follow Cardiology. Hx of CAD, had heart cath done over 20 years ago. On current regimen of Losartan 50 mg once daily, Lipitor 20 mg once, Nitro 0.4 mg prn and Aspirin 325 mg once daily. He denies any chest pains, dizziness, or SOB. Denies any unusual SOB or chest pains with exertion. No limitations on activity. Denies any problems in the past with surgeries, no issues with general anesthesia. Past medical history, appointments, medications, allergies reviewed. 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, unspecified whether hoopa or transplanted heart (HCC) Benign prostatic hyperplasia with lower urinary tract symptoms, symptom details unspecified Burning with urination Coronary atherosclerosis of unspecified type of vessel, hoopa or graft Coronary artery disease Hypertension, unspecified type Microscopic hematuria 12/09/2022 Mixed hyperlipidemia Hyperlipidemia Type 2 diabetes mellitus with complication, without long-term current use of insulin (HCC) Previous Surgical History PAST SURGICAL HISTORY Procedure Laterality Date LEFT HEART CATH,PERCUTANEOUS 1998 Cardiac cath, L heart Family History FAMILY HISTORY Problem Relation Age of Onset Diabetes Mother Coronary Artery Disease Father COPD Sister No Known Problems Brother Heart Brother Alcohol abuse Brother No Known Problems Maternal Grandmother No Known Problems Maternal Grandfather No Known Problems Paternal Grandmother No Known Problems Paternal Grandfather Patient Allergies ALLERGIES Allergen Reactions Imdur [Isosorbide M* Intolerance Headache Toprol Xl [Metoprol* Intolerance Open mouth sores Current Medications Current Outpatient Medications on File Prior to Visit Medication Sig losartan (COZAAR) 50 mg tablet Take 1 tablet by mouth once daily. gabapentin (NEURONTIN) 300 mg capsule Take 1 capsule by mouth daily at bedtime for 90 days. finasteride (PROSCAR) 5 mg tablet Take 1 tablet by mouth once daily. tamsulosin (FLOMAX) 0.4 mg Take 1 capsule by mouth daily at bedtime. metFORMIN ER (GLUCOPHAGE XR) 500 mg 24 hr tablet Take 1 tablet by mouth daily with breakfast. atorvastatin (LIPITOR) 20 mg tablet Take 1 tablet by mouth once daily. nitroglycerin sublingual (NITROQUICK) 0.4 mg SL tablet Dissolve 1 tablet under the tongue as needed for chest pain. DISSOLVE ON TONGUE FOR CHEST PAIN. IF NO PAIN RELIEF, CALL 911 aspirin(ECOTRIN 325 MG TAB) Take one(1) tablet daily. No current facility-administered medications on file prior to visit. Social History Social History Tobacco Use Smoking status: Former Types: Cigarettes Quit date: 05/23/2006 Years since quittin.9 Smokeless tobacco: Never Vaping Use Vaping Use: Never used Substance Use Topics Alcohol use: No Drug use: No EXAM: BP 122/74 Pulse 76 Resp 16 Wt 76.8 kg (169 lb 4.8 oz) BMI 26.52 kg/m General Appearance: Well appearing, alert, in no acute distress, well-hydrated, well nourished.. Lungs: Lungs clear to auscultation. No wheezing, rhonchi, rales.. Heart: RRR without murmur, gallop, or rubs. No ectopy. Health Maintenance List ABDOMINAL AORTIC ANEURYSM SCREENING Never done BP CONTROLLED (<130/80) Never done SHINGRIX VACCINE(1 of 2) Never done DIABETIC FOOT EXAM due on 01/23/2020 COVID-19 VACCINE(3 - Pfizer series) due on 06/10/2021 DTAP,TDAP,TD(2 - Td or Tdap) due on 06/27/2022 INFLUENZA(1) due on 09/14/2023 COLORECTAL CANCER SCREENING due on 12/10/2023 HEPATITIS C SCREENING due on 12/10/2023 HBA1C due on 05/24/2023 URINE ALBUMIN:CREATININE RATIO due on 11/23/2023 LDL CHOLESTEROL due on 11/23/2023 ANNUAL PCP TEAM CHRONIC DISEASE VISIT due on 03/10/2024 DILATED RETINAL EXAM due on 04/03/2024 ADVANCE DIRECTIVE DISCUSSION Completed DEPRESSION ASSESSMENT Completed PNEUMOCOCCAL: 65+ Completed Data reviewed Outside EKG and labs done at [facility] 03/30/[address] Dixon EKG today shows NSR, RBBB, left anterior fascicular block ASSESSMENT/PLAN: 1. Pre-op exam - ICD9: V72.84, ICD10: Z01.818 (primary diagnosis) EKG checked today in office; no acute changes, no cardiac symptoms I feel he is medically cleared for the planned surgery 2. 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 Dr. Dixon's office notified, letter and copy of today's visit faxed to their office. I agree with the Chief Complaint, ROS, and Past Histories independently gathered by the clinical clerical and office support workers and the remaining scribed note accurately describes my personal service to the patient. Medical Decision Making: Problems: Moderate: 2+ stable chronic illnesses Data: Unique test result(s) reviewed: 1 Unique test(s) ordered: 1 Risk: Moderate: Drug management Medical Decision Making Level: 4 - Moderate Haley Lucio MD The documentation for this note was completed by Sherri Milian Ma acting as scribe for Haley Lucio MD. April 20, 2023 1:56 PM. Sherri Milian Ma documented in this encounter [facility] 04-10-2023 Miscellaneous Notes Jacy with [facility] calls for a copy of EKG on pt's chart. Jacy states it is needed for a comparison to EKG done there. EKG faxed to: [phone]. Cande Martines LPN documented in this encounter [facility] 03-10-2023 Note HNO ID: [id number] Author: Haley Lucio MD Service: ? 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, unspecified whether hoopa or transplanted heart (HCC) Benign prostatic hyperplasia with lower urinary tract symptoms, symptom details unspecified Burning with urination Coronary atherosclerosis of unspecified type of vessel, hoopa or graft Coronary artery disease Hypertension, unspecified type Microscopic hematuria 12/09/2022 Mixed hyperlipidemia Hyperlipidemia Type 2 diabetes mellitus with complication, without long-term current use of insulin ([facility]) PAST SURGICAL HISTORY Procedure Laterality Date LEFT HEART CATH,PERCUTANEOUS 1998 Cardiac cath, L heart Imdur [Isosorbide Mononitrate] and Toprol Xl [Metoprolol Succinate] Current Outpatient Medications Medication Sig gabapentin (NEURONTIN) 300 mg capsule Take 1 capsule by mouth daily at bedtime for 90 days. losartan (COZAAR) 25 mg tablet Take 1 tablet by mouth once daily. finasteride (PROSCAR) 5 mg tablet Take 1 tablet by mouth once daily. tamsulosin (FLOMAX) 0.4 mg Take 1 capsule by mouth daily at bedtime. metFORMIN ER (GLUCOPHAGE XR) 500 mg 24 hr tablet Take 1 tablet by mouth daily with breakfast. atorvastatin (LIPITOR) 20 mg tablet Take 1 tablet by mouth once daily. nitroglycerin sublingual (NITROQUICK) 0.4 mg SL tablet Dissolve 1 tablet under the tongue as needed for chest pain. DISSOLVE ON TONGUE FOR CHEST PAIN. IF NO PAIN RELIEF, CALL 911 aspirin(ECOTRIN 325 MG TAB) Take one(1) tablet daily. No current facility-administered medications for this visit. Medications reviewed: Yes FAMILY HISTORY Problem Relation Age of Onset Diabetes Mother Coronary Artery Disease Father COPD Sister No Known Problems Brother Heart Brother Alcohol abuse Brother No Known Problems Maternal Grandmother No Known Problems Maternal Grandfather No Known Problems Paternal Grandmother No Known Problems Paternal Grandfather Social History Tobacco Use Smoking status: Former Types: Cigarettes Quit date: 05/23/2006 Years since quittin.8 Smokeless tobacco: Never Vaping Use Vaping Use: Never used Substance Use Topics Alcohol use: No Drug use: No Verena gets minimal exercise. He watches his diet for sodium, low fat and low cholesterol some of the time.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 Reminder note to check Health Maintenance for items below Health Maintenance items due: ABDOMINAL AORTIC ANEURYSM SCREENING Never done HEPATITIS C SCREENING Never done SHINGRIX VACCINE(1 of 2) Never done DIABETIC FOOT EXAM due on 01/23/2020 COLORECTAL CANCER SCREENING due on 01/24/2020 COVID-19 VACCINE(3 - Booster for Pfizer series) due on 06/10/2021 INFLUENZA(1) due on 04/21/2022 DTAP,TDAP,TD(2 - Td or Tdap) due on 06/27/2022 ADVANCE DIRECTIVE DISCUSSION due on 08/21/2022 DEPRESSION ASSESSMENT Never done Navigation Signature: Randall Karimi MA November 10, 2022 10:55 AM documented in this encounter [facility] 09-13-2022 Note Patient Outreach (DONALD TNJASBIR) VERENA CHENG ([id number]) 1950 M Date Time Provider Department 09/13/22 RANDALL KARIMI During your visit today, we recorded the following information about you: Randall Karimi MA 09/13/2022 12:54 PM Signed POPULATION HEALTH NAVIGATION OUTREACH Action/FYI LVM V I OHART MESSAGE SENT COLORECTAL CANCER SCREENING due on 01/24/2020 INFLUENZA(1) due on 04/21/2022 Patient Identified by Name and : NO Outreach Outcome/Action Unable to reach patient: Left message Did you use a PCP flex slot to schedule this appointment? N/A Reason for Outreach Care Gap or Scheduling/Wellness visits Payer: Payor: MEDICARE / Plan: MEDICARE A AND B / Product Type: Medicare / Care Gap Reviewed:: Colorectal Cancer Screening Flu Vaccine Reminder: Reminder note to check Health Maintenance for items below Health Maintenance items due: ABDOMINAL AORTIC ANEURYSM SCREENING Never done HEPATITIS C SCREENING Never done SHINGRIX VACCINE(1 of 2) Never done DIABETIC FOOT EXAM due on 01/23/2020 COLORECTAL CANCER SCREENING due on 01/24/2020 COVID-19 VACCINE(3 - Booster for Pfizer series) due on 06/10/2021 INFLUENZA(1) due on 04/21/2022 DTAP,TDAP,TD(2 - Td or Tdap) due on 06/27/2022 ADVANCE DIRECTIVE DISCUSSION due on 08/21/2022 DEPRESSION ASSESSMENT Never done Navigation Signature: Randall Karimi MA September 13, 2022 7:57 AM Allergies As of Date: 09/13/2022 Noted Allergy Reaction IMDUR (ISOSORBIDE MONONITRATE) 05/14/2010 5 - Intolerance Comments: Headache TOPROL XL (METOPROLOL SUCCINATE) 05/14/2010 5 - Intolerance Comments: Open mouth sores Date Reviewed: 01/11/2022 Reviewed by: Sherri Milian Ma - Fully Assessed Reason for Visit: Population Health Navigation Outreach [3910] Cmt: ACO [facility] PCSA Prescriptions as of 09/13/2022 - finasteride (PROSCAR) 5 mg tablet Take 1 tablet by mouth once daily. - tamsulosin (FLOMAX) 0.4 mg Take 1 capsule by mouth daily at bedtime. - metFORMIN ER (GLUCOPHAGE XR) 500 mg 24 hr tablet Take 1 tablet by mouth daily with breakfast. - atorvastatin (LIPITOR) 20 mg tablet Take 1 tablet by mouth once daily. - nitroglycerin sublingual (NITROQUICK) 0.4 mg SL tablet Dissolve 1 tablet under the tongue as needed for chest pain. DISSOLVE ON TONGUE FOR CHEST PAIN. IF NO PAIN RELIEF, CALL 911 - aspirin(ECOTRIN 325 MG TAB) Take one(1) tablet daily. Problem List As Of Date 09/13/2022 Noted Resolved HYPERLIPIDEMIA NEC/NOS [E78.5] 12/21/2006 Coronary Atherosclerosis of [place] Coronary Art*12/21/2006 Elevated glucose [R73.09] 07/14/2014 Type 2 diabetes mellitus with complication, wit*10/04/2018 Encounter Status:Closed by RANDALL KARIMI on 09/13/22 [facility] 09-13-2022 Note HNO ID: [id number] Author: Randall Karimi MA Service: ? Author Type: Master [employer] Security Type: Progress Notes Filed: 09/13/2022 12:54 PM Note Text: POPULATION HEALTH NAVIGATION OUTREACH Action/I [facility] [employer] MESSAGE SENT COLORECTAL CANCER SCREENING due on 01/24/2020 INFLUENZA(1) due on 04/21/2022 Patient Identified by Name and : NO Outreach Outcome/Action Unable to reach patient: Left message Did you use a PCP flex slot to schedule this appointment? N/A Reason for Outreach Care Gap or Scheduling/Wellness visits Payer: Payor: MEDICARE / Plan: MEDICARE A AND B / Product Type: Medicare / Care Gap Reviewed:: Colorectal Cancer Screening Flu Vaccine Reminder: Reminder note to check Health Maintenance for items below Health Maintenance items due: ABDOMINAL AORTIC ANEURYSM SCREENING Never done HEPATITIS C SCREENING Never done SHINGRIX VACCINE(1 of 2) Never done DIABETIC FOOT EXAM due on 01/23/2020 COLORECTAL CANCER SCREENING due on 01/24/2020 COVID-19 VACCINE(3 - Booster for Pfizer series) due on 06/10/2021 INFLUENZA(1) due on 04/21/2022 DTAP,TDAP,TD(2 - Td or Tdap) due on 06/27/2022 ADVANCE DIRECTIVE DISCUSSION due on 08/21/2022 DEPRESSION ASSESSMENT Never done Navigation Signature: Randall Karimi MA September 13, 2022 7:57 AM [facility] 09-13-2022 History of Presen t illness Narrative POPULATION HEALTH NAVIGATION OUTREACH Action/FYI LVM V I OHART MESSAGE SENT COLORECTAL CANCER SCREENING due on 01/24/2020 INFLUENZA(1) due on 04/21/2022 Patient Identified by Name and : NO Outreach Outcome/Action Unable to reach patient: Left message Did you use a PCP flex slot to schedule this appointment? N/A Reason for Outreach Care Gap or Scheduling/Wellness visits Payer: Payor: MEDICARE / Plan: MEDICARE A AND B / Product Type: Medicare / Care Gap Reviewed:: Colorectal Cancer Screening Flu Vaccine Reminder: Reminder note to check Health Maintenance for items below Health Maintenance items due: ABDOMINAL AORTIC ANEURYSM SCREENING Never done HEPATITIS C SCREENING Never done SHINGRIX VACCINE(1 of 2) Never done DIABETIC FOOT EXAM due on 01/23/2020 COLORECTAL CANCER SCREENING due on 01/24/2020 COVID-19 VACCINE(3 - Booster for Pfizer series) due on 06/10/2021 INFLUENZA(1) due on 04/21/2022 DTAP,TDAP,TD(2 - Td or Tdap) due on 06/27/2022 ADVANCE DIRECTIVE DISCUSSION due on 08/21/2022 DEPRESSION ASSESSMENT Never done Navigation Signature: Randall Karimi MA September 13, 2022 7:57 AM documented in this encounter [facility] 07-05-2022 Miscellaneous Notes Addended by: JOSEPHINE AVILA on: 07/05/2022 12:53 PM Modules accepted: Orders The following approved medication requests have been transmitted electronically. Requested Prescriptions Signed Prescriptions Disp Refills finasteride (PROSCAR) 5 mg tablet 90 tablet 4 Sig: Take 1 tablet by mouth once daily. tamsulosin (FLOMAX) 0.4 mg 90 capsule 3 Sig: Take 1 capsule by mouth daily at bedtime. metFORMIN ER (GLUCOPHAGE XR) 500 mg 24 hr tablet 90 tablet 3 Sig: Take 1 tablet by mouth daily with breakfast. atorvastatin (LIPITOR) 20 mg tablet 90 tablet 3 Sig: Take 1 tablet by mouth once daily. nitroglycerin sublingual (NITROQUICK) 0.4 mg SL tablet 100 tablet 3 Sig: Dissolve 1 tablet under the tongue as needed for chest pain. DISSOLVE ON TONGUE FOR CHEST PAIN. IF NO PAIN RELIEF, CALL 911 Josephine Avila APRN.CNP The following approved medication requests have been transmitted electronically. Requested Prescriptions Signed Prescriptions Disp Refills finasteride (PROSCAR) 5 mg tablet 90 tablet 4 Sig: Take 1 tablet by mouth once daily. Josephine Avila APRN.CNP See pt message and advise. Avodart is Dutasteride. Are these the same type of medications? Sherin Hooker Ma documented in this encounter [facility] 01-14-2022 Miscellaneous Notes Pt sent Soundwave message with all information below. If questions he's to respond to message or call the office and speak with FM Triage Nurse. Sherin Hooker Ma Can you please call the patient and let him know I have reviewed his lab results. A1C has slightly increased from 7.1 to 7.3. LDL cholesterol is just slightly elevated. I would recommend he continue to take all medications as prescribed. Work on eating a low carb diet, decrease processed foods, increase protein, veggies, and get some form of exercise. Please let me know if he has any questions. Thank you. Rupal De La Torre APRN.CNP documented in this encounter [facility] 01-11-2022 Miscellaneous Notes Addended by: HALEY LUCIO on: 01/11/2022 02:38 PM Modules accepted: Orders documented in this encounter [facility] 01-11-2022 History of Presen t illness Narrative Chief Complaint Patient presents with: Follow Up: medication HPI Verena Cheng is a 71 year old male who presents here today for a medication follow up. He had 2 COVID vaccines but has not received any boosters. He has not gotten the new shingrix vaccine. He does have an advanced directive. Denies any stomach, bowel or urinary issues. Does have increased urination. Pt on current regimen of Flomax 0.4 mg once daily and Avodart 0.5 mg once daily. He was also referred to Dr. Dixon at [facility], but wanted to trial the additional medication Avodart to his regimen. The Avodart is helping with the urination, some improvement but still issues. States that he will urinate but at times will feel he has to urinate again a few minutes later. He states it is tolerable at this time. Face: has a bump to the right side face, not getting any bigger or changing colors, has had for at least year now. No pain, no drainage. Denies any chest pain, sob or dizziness. Currently on no cardiac medications. DM: Admit he does not check his sugars at home. Denies any low sugars or neuropathy symptoms in his feet. Pt on current regimen of Metformin 500 mg once daily. Has not followed with his eye doctor for dm eye exam. Admits he has a hard time staying away from sweets. Lipids/CAD: Admits his diet could be better, but does try to watch this. Reports minimal exercise. On current regimen of Lipitor 20 mg daily, denies any issues with medication. S/P ME in 1997, did not tolerate other cardiac mes. Pain: Hx of chronic back pain. Has been given muscle relax, Norflex in the past but he was unable to afford it. Past medical history, appointments, medications, allergies reviewed. Previous Medical History PAST MEDICAL HISTORY Diagnosis Date Coronary atherosclerosis of unspecified type of vessel, hoopa or graft Coronary artery disease Mixed hyperlipidemia Hyperlipidemia Previous Surgical History PAST SURGICAL HISTORY Procedure Laterality Date LEFT HEART CATH,PERCUTANEOUS 1998 Cardiac cath, L heart Family History FAMILY HISTORY Problem Relation Age of Onset Coronary Artery Disease Father Diabetes Mother COPD Sister Heart Brother Patient Allergies ALLERGIES Allergen Reactions Imdur [Isosorbide M* Intolerance Headache Toprol Xl [Metoprol* Intolerance Open mouth sores Current Medications Current Outpatient Medications on File Prior to Visit Medication Sig tamsulosin (FLOMAX) 0.4 mg Take 1 capsule by mouth daily at bedtime. metFORMIN ER (GLUCOPHAGE XR) 500 mg 24 hr tablet Take 1 tablet by mouth daily with breakfast. dutasteride (AVODART) 0.5 mg capsule Take 1 capsule by mouth once daily. atorvastatin (LIPITOR) 20 mg tablet Take 1 tablet by mouth once daily. nitroglycerin sublingual 0.4 mg SL tablet Dissolve 1 tablet under the tongue as needed for Chest Pain. DISSOLVE ON TONGUE FOR CHEST PAIN. IF NO PAIN RELIEF, CALL 911 aspirin(ECOTRIN 325 MG TAB) Take one(1) tablet daily. No current facility-administered medications on file prior to visit. Social History Social History Tobacco Use Smoking status: Former Smoker Quit date: 05/23/2006 Years since quittin.6 Smokeless tobacco: Never Used Vaping Use Vaping Use: Never used Substance Use Topics Alcohol use: No Drug use: No EXAM: BP 150/80 Pulse 68 Resp 16 Wt 84.5 kg (186 lb 3.2 oz) BMI 29.16 kg/m General Appearance: Well appearing, alert, in no acute distress, well-hydrated, well nourished. and Overweight. Head: Positive findings: small lump to right side face, no pain on palpation, soft, salivary gland irritation. Lungs: Lungs clear to auscultation. No wheezing, rhonchi, rales.. Heart: RRR without murmur, gallop, or rubs. No ectopy. Health Maintenance List ABDOMINAL AORTIC ANEURYSM SCREENING Never done SHINGRIX VACCINE(1 of 2) Never done DIABETIC FOOT EXAM due on 01/23/2020 DILATED RETINAL EXAM due on 05/19/2021 ADVANCE DIRECTIVE DISCUSSION Never done COVID-19 VACCINE(3 - Booster for Pfizer series) due on 09/15/2021 URINE ALBUMIN:CREATININE RATIO due on 01/20/2022 COLORECTAL CANCER SCREENING due on 01/25/2022 HEPATITIS C SCREENING due on 01/25/2022 DEPRESSION SCREENING due on 01/20/2022 HBA1C due on 01/24/2022 ANNUAL PCP TEAM CHRONIC DISEASE VISIT due on 01/25/2022 INFLUENZA(Season Ended) due on 04/21/2022 DTAP,TDAP,TD(2 - Td or Tdap) due on 06/27/2022 LDL CHOLESTEROL due on 07/26/2022 PNEUMOVAX AGE 65 AND OVER WITH 5YR LOOKBACK Completed MENINGOCOCCAL CONJUGATE Aged Out Data reviewed Labs in process, will call with results. ASSESSMENT/PLAN: 1. Type 2 diabetes mellitus with complication, without long-term current use of insulin (HCC) - ICD9: 250.90, ICD10: E11.8 (primary diagnosis) Determine upon lab results - Continue current medications - METFORMIN ER 500 MG TABLET,EXTENDED RELEASE 24 HR 2. Benign prostatic hyperplasia with lower urinary tract symptoms, symptom details unspecified - ICD9: 600.01, ICD10: N40.1 Some improvement Continue current medications. - DUTASTERIDE 0.5 MG CAPSULE 3. 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 - ATORVASTATIN 20 MG TABLET 4. Hyperlipidemia, mixed - ICD9: 272.2, ICD10: E78.2 - to be determined upon return of lab results - Continue current medication. - Encouraged following a low fat, low cholesterol diet. - Discussed the benefits of regular aerobic exercise and weight loss. - ATORVASTATIN 20 MG TABLET Follow up in 6 months to a year depending on lab results. Will notify pt of results. If A1c stable consider annual follow up; if elevated will increase metformin and recheck in 6 months I agree with the Chief Complaint, ROS, and Past Histories independently gathered by the clinical clerical and office support workers and the remaining scribed note accurately describes my personal service to the patient. Medical Decision Making: Problems: Moderate: 2+ stable chronic illnesses Risk: Moderate: Drug management Medical Decision Making Level: 4 - Moderate Haley Lucio MD The documentation for this note was completed by Sherri Milian Ma acting as scribe for Haley Lucio MD. January 11, 2022 1:59 PM. Sherri Milian Ma documented in this encounter [facility] 01-10-2022 Miscellaneous Notes Refills sent. Appointment tomorrow with Dr. Lucio. The following approved medication requests have been transmitted electronically. Signed Prescriptions Disp Refills tamsulosin (FLOMAX) 0.4 mg 90 capsule 0 Sig: Take 1 capsule by mouth daily at bedtime. SUZY: No metFORMIN ER (GLUCOPHAGE XR) 500 mg 24 hr tablet 90 tablet 0 Sig: Take 1 tablet by mouth daily with breakfast. SUZY: No dutasteride (AVODART) 0.5 mg capsule 90 capsule 0 Sig: Take 1 capsule by mouth once daily. SUZY: No atorvastatin (LIPITOR) 20 mg tablet 90 tablet 0 Sig: Take 1 tablet by mouth once daily. SUZY: No Josephine Avila APRN.SWITCH[employer] WORKER HELPER Last OV; 01/25/21 Next OV: No upcoming appt. Pt cancelled his 6 month f/u and has not scheduled. Almost 1 year since last seen. Lipitor - 01/25/21 #90 w/3. Avodart - 01/25/21 - #90 w/3. Metformin - 01/08/21 #90 w/3. Flomax - 01/06/21 #90 w/3. Sherin Hooker Ma documented in this encounter [facility] 01-05-2022 Miscellaneous Notes Pt last labs were done in Jul 2021, A1c, Lipid, CMP. Would like to have lab orders placed. 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, unspecified whether hoopa or transplanted heart (HCC) Hyperlipidemia, mixed Mixed hyperlipidemia [facility] Diagnosis Type 2 diabetes mellitus with complication, without long-term current use of insulin (HCC)- Primary Benign prostatic hyperplasia with lower urinary tract symptoms, symptom details unspecified 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, unspecified whether hoopa or transplanted heart (HCC) Hyperlipidemia, mixed Mixed hyperlipidemia documented in this encounter [facility] note* Diagnosis Benign prostatic hyperplasia with lower urinary tract symptoms, symptom details unspecified Type 2 diabetes mellitus with complication, without long-term current use of insulin (HCC) 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, unspecified whether hoopa or transplanted heart (HCC) Hyperlipidemia, mixed Mixed hyperlipidemia documented in this encounter [facility] note* Diagnosis Type 2 diabetes mellitus with complication, without long-term current use of insulin (HCC)- Primary Benign prostatic hyperplasia with lower urinary tract symptoms, symptom details unspecified Atherosclerosis of hoopa coronary artery of hoopa heart without angina pectoris Hyperlipidemia, mixed Mixed hyperlipidemia documented in this encounter [facility] note* Diagnosis Type 2 diabetes mellitus with complication, without long-term current use of insulin (HCC)- Primary Hyperlipidemia, mixed Mixed hyperlipidemia Hypertension, unspecified type 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, unspecified whether hoopa or transplanted heart (HCC) Benign prostatic hyperplasia with lower urinary tract symptoms, symptom details unspecified Burning with urination Dysuria Microscopic hematuria Skin nodule Localized superficial swelling, mass, or lump [facility] Diagnosis Pre-op exam- Primary Preoperative examination, unspecified 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, unspecified whether hoopa or transplanted heart (HCC) 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 documented in this encounter [facility] for referral (narrative)* Diagnostic Procedure Only (Routine) - Authorized Specialty Diagnoses / Procedures Referred By Contac t Referred To Contact US IMAGING Diagnoses Microscopic hematuria Procedures US KIDNEY/BLADDER US RETROPERITONEAL REAL TIME W/IMAGE COMPLETE Haley Lucio MD [address] [place] [id number] [facility] Referral ID Status Reason Start Date Expiration Date Visits Requested Visits Authorized [id number] Authorized Auto-Generat ed Referral 12/09/2022 01/08/2024 1 1 * Consult, Test, Treat (Routine) - Authorized Specialty Diagnoses / Procedures Referred By Pam gonzalez Referred To Contact Urology Diagnoses Microscopic hematuria Procedures CONSULT TO UROLOGY OFFICE/OUTPATIENT NEW HIGH MDM 60-74 MINUTES Haley Lucio MD [address] [place] [address] Referral ID Status Reason Start Date Expiration Date Visits Requested Visits Authorized [id number] Authorized PCP Requested Referral 12/09/2022 12/09/2023 1 [facility] Outpatient Procedure (Routine) - Closed Specialty Diagnoses / Procedures Referred By Pam gonzalez Referred To [facility] Diagnoses 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, unspecified whether hoopa or transplanted heart (HCC) Procedures ECG COMPLETE ECG ROUTINE ECG W/LEAST 12 LDS W/I&R Haley Lucio MD [address] [place] [address] [facility] [address] [place] [address] Referral ID Status Reason Start Date Expiration Date V isits Requested Visits Authorized [id number] Closed Auto-Generate d Referral 04/20/2023 04/19/2024 1 1 [facility] Advance Directives No Advanced Directives Records FoundDocuments on File Type Date Recorded Patient [employer] Expl anation Advance Directive(s) 04/05/2017 3:16 PM Documents on File Type Date Recorded Patient [employer] Expl anation Advance Directive(s) 04/05/2017 3:16 PM Summary Purpose Family History No Family History Records Found Additional Source Comments Source Comments (unrecognize d section and content) In the event this informatio n is protected by the Federal Confidentiality of Alcohol and Drug Abuse Patient Records regulations: The Federal rules restrict any use of the information to criminally investigate or prosecute any alcohol or drug abuse patient.[facility] the event this information is protected by the Federal Confidentiality of Alcohol and Drug Abuse Patient Records regulations: The Federal rules restrict any use of the information to criminally investigate or prosecute any alcohol or drug abuse patient.[facility] the event this information is protected by the Federal Confidentiality of Alcohol and Drug Abuse Patient Records regulations: The Federal rules restrict any use of the information to criminally investigate or prosecute any alcohol or drug abuse patient.[facility] the event this information is protected by the Federal Confidentiality of Alcohol and Drug Abuse Patient Records regulations: The Federal rules restrict any use of the information to criminally investigate or prosecute any alcohol or drug abuse patient.[facility] the event this information is protected by the Federal Confidentiality of Alcohol and Drug Abuse Patient Records regulations: The Federal rules restrict any use of the information to criminally investigate or prosecute any alcohol or drug abuse patient.[facility] the event this information is protected by the Federal Confidentiality of Alcohol and Drug Abuse Patient Records regulations: The Federal rules restrict any use of the information to criminally investigate or prosecute any alcohol or drug abuse patient.[facility] the event this information is protected by the Federal Confidentiality of Alcohol and Drug Abuse Patient Records regulations: The Federal rules restrict any use of the information to criminally investigate or prosecute any alcohol or drug abuse patient.[facility] the event this information is protected by the Federal Confidentiality of Alcohol and Drug Abuse Patient Records regulations: The Federal rules restrict any use of the information to criminally investigate or prosecute any alcohol or drug abuse patient.[facility] the event this information is protected by the Federal Confidentiality of Alcohol and Drug Abuse Patient Records regulations: The Federal rules restrict any use of the information to criminally investigate or prosecute any alcohol or drug abuse patient.[facility] the event this information is protected by the Federal Confidentiality of Alcohol and Drug Abuse Patient Records regulations: The Federal rules restrict any use of the information to criminally investigate or prosecute any alcohol or drug abuse patient.[facility] the event this information is protected by the Federal Confidentiality of Alcohol and Drug Abuse Patient Records regulations: The Federal rules restrict any use of the information to criminally investigate or prosecute any alcohol or drug abuse patient.[facility] HospitalIn the event this information is protected by the Federal Confidentiality of Alcohol and Drug Abuse Patient Records regulations: The Federal rules restrict any use of the information to criminally investigate or prosecute any alcohol or drug abuse patient.[facility] ClinicIn the event this information is protected by the Federal Confidentiality of Alcohol and Drug Abuse Patient Records regulations: The Federal rules restrict any use of the information to criminally investigate or prosecute any alcohol or drug abuse patient.[facility] HospitalIn the event this information is protected by the Federal Confidentiality of Alcohol and Drug Abuse Patient Records regulations: The Federal rules restrict any use of the information to criminally investigate or prosecute any alcohol or drug abuse patient.[facility] HospitalIn the event this information is protected by the Federal Confidentiality of Alcohol and Drug Abuse Patient Records regulations: The Federal rules restrict any use of the information to criminally investigate or prosecute any alcohol or drug abuse patient.[facility] HospitalIn the event this information is protected by the Federal Confidentiality of Alcohol and Drug Abuse Patient Records regulations: The Federal rules restrict any use of the information to criminally investigate or prosecute any alcohol or drug abuse patient.[facility] HospitalIn the event this information is protected by the Federal Confidentiality of Alcohol and Drug Abuse Patient Records regulations: The Federal rules restrict any use of the information to criminally investigate or prosecute any alcohol or drug abuse patient.[facility] HospitalIn the event this information is protected by the Federal Confidentiality of Alcohol and Drug Abuse Patient Records regulations: The Federal rules restrict any use of the information to criminally investigate or prosecute any alcohol or drug abuse patient.[facility] HospitalIn the event this information is protected by the Federal Confidentiality of Alcohol and Drug Abuse Patient Records regulations: The Federal rules restrict any use of the information to criminally investigate or prosecute any alcohol or drug abuse patient.[facility] Care Teams (unrecognized sec tion and content) Ediphone Operator Relationship Specialty Start Date End Date Haley Lucio MD [address] [place], [place] [address] PCP - General 12/08/06 Ediphone Operator Relationship Specialty Start Date End Date Haley Lucio MD [address] [place] [address] PCP - General 12/08/06 Ediphone Operator Relationship Specialty Start Date End Date Haley Lucio MD [address] [facility] [place] [address] PCP - General 12/08/06 Ediphone Operator Relationship Specialty Start Date End Date Haley Lucio MD [address] [facility] [place] [address] PCP - General 12/08/06 Ediphone Operator Relationship Specialty Start Date End Date Haley Lucio MD [address] [place] [address] PCP - General 12/08/06 Ediphone Operator Relationship Specialty Start Date End Date Haley Lucio MD [address] [place] [address] PCP - General 12/08/06 Ediphone Operator Relationship Specialty Start Date End Date Haley Lucio MD [address] [place] [address] PCP - General 12/08/06 Ediphone Operator Relationship Specialty Start Date End Date Haley Lucio MD [address] [place] [address] PCP - General 12/08/06 Ediphone Operator Relationship Specialty Start Date End Date Haley Lucio MD [address] [place] [address] PCP - General 12/08/06 Ediphone Operator Relationship Specialty Start Date End Date Haley Lucio MD [address] [place] [address] PCP - General 12/08/06 Ediphone Operator Relationship Specialty Start Date End Date Haley Lucio MD [address] [facility] [place] [address] PCP - General 12/08/06 Reason for Visit (unrecogniz ed section and content) Reason Comments Results Reason Onset Date Comments Population Health Navigation Outreach 09/13/2022 [facility] Reason Onset Date Comments Population Health Navigation Outreach 11/10/2022 [facility] Reason Comments Follow Up Reason Comments patient information Reason Comments Pre-Op Exam TUR-BT Dr. Dr. Deborah jimenez Reason Comments hospice/Palliative Order Form (unrecognized sect ion and content) No Status Records Found INFORMATION SOURCE (unrecogn ized section and content) FOR RECORDS PERTAINING TO PATIENTS WHO ARE OR HAVE BEEN ENROLLED IN A CHEMICAL DEPENDENCY/SUBSTANCEABUSE PROGRAM, SOME INFORMATION MAY BE OMITTED. This clinical summary was aggregated from multiple sources. Caution should be exercised in using it in the provision of clinical care. This summary normalizes information from multiple sources, and as a consequence, information in this document may materially change the coding, format and clinical context of patient data. In addition, data may be omitted in some cases. CLINICAL DECISIONS SHOULD BE BASED ON THE PRIMARY CLINICAL RECORDS. [employer] provides no warranty or guarantee of the accuracy or completeness of information in this document.
[2023-09-25 11:35] LABS: Anion Gap 5 (5-15); BUN 18 mg/dL (7-18); Calcium,Total 8.9 mg/dL (8.5-10.1); Chloride 102 mmol/L (98-107); EST Glomerular Filtration Rate 78 mL/min (>60); Est Glom Filt Rate - Afr Amer 94 mL/min (>60); Glucose 155 mg/dL (74-106); Potassium 3.8 mmol/L (3.5-5.1); Sodium Level 134 mmol/L (136-145)
== END | disposition home or self-care (01) ==
LOC: LAB 10:28
PROVIDERS: PCP Family Medicine; Referring Provider Urology; Visit Provider Urology
DX: Z01.812 Encounter for preprocedural laboratory examination (principal)
CPT/HCPCS: 36415; 80048; 85027

== ENCOUNTER → 2023-09-29 | Outpatient (CLI) | payer MEDICARE, OTHER, SELFPAY ==
--- NOTE | 2023-09-29 | BLA_PTH ---
PATHOLOGY RESULTS PATIENT: VERENA CHENG [facility] U#:[id number] AGE/SX: 73/M ROOM: RE09/29/[address]: Dr. Garrick Dixon MD : 1950 BED: DIS: 09/29/2023 SPEC #: [id number] RECD: 10/02/23 07:31 STATUS: NATASHA MERCADO #: [id number] ROSIBEL: 09/29/23 00:[address]: Garrick Dixon DEPT: SURGICAL PATHOLOGY RECD BY: Maria Teresa Love ENTERED: 10/02/23 07:31 SP TYPE: BLADDER BX OTHR DR: Dr. 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 See comment. ADIRANA:sunil 10/03/2023 COMMENT The specimen predominantly consists of fibroconnective tissue and rare smooth muscle bundles. Overlying epithelium is denuded in most of the specimen. Clinical correlation and appropriate follow up are necessary. Please make reference to previous specimen ([id number]), bladder tumor, TUR with diagnosis of invasive high-grade urothelial carcinoma. Case has been reviewed in consultation with Dr. Hollins who concurs with the above diagnosis. IDC:AM MICROSCOPIC DESCRIPTION Slides are reviewed. GROSS DESCRIPTION Received in fixative is one container labeled with the patient's name and designated bladder biopsy. The specimen consists of multiple irregular fragments of light arredondo soft tissue that in aggregate measure 1.5 x 0.2 x 0.1 cm. The specimen is totally submitted in one cassette. / ADRIANA:sunil 10/02/2023 TC:3 CPT: 76838
--- OUTSIDE RECORDS SUMMARY | 2023-09-29 17:21 | XMS RPT_ITS | CCD ---
Author Name Unknown Address [address] [place] [address] Organization [facility] Care Team Providers Care Administrative Accountant Name Role Phone Haley Lucio MD Primary Care Provider [phone] HALEY LUCIO Primary Care Unavailable HALEY LUCIO [...] LUCIO Referring Unavailable LOUIS SHIN Attending Unavailable Allergies Allergy Classification Reported Allergen(s) Allergy Type Date of Onset Reaction(s) Facility (20 sources) Isosorbide; Translations: [ISOSORBIDE MONONITRATE] Drug Allergy 05-14-2010 Intolerance [facility] (20 sources) Metoprolol; Translations: [METOPROLOL SUCCINATE] Drug Allergy 05-14-2010 Intolerance [facility] Medications Current Medications Medication Drug Class(es) Dates Sig (Normalized) Sig (Original) gabapentin 300 mg oral capsule (10 sources) Anti-epileptic Agent Start: 07-25-2023 End: 01-21-2024 take 1 capsule by mouth once daily at bedtime gabapentin (NEURONTIN) 300 mg capsule Take 1 capsule by mouth daily at bedtime for 180 days. 90 capsule 1 07/25/2023 01/21/2024 Active Completed/Discontinued Medications Medication Drug Class(es) Dates Sig (Normalized) Sig (Original) aspirin 325 mg delayed release oral tablet (20 sources) Platelet Aggregation Inhibitor, Nonsteroidal Anti-inflammatory Drug Start: 05-10-2010 aspirin(ECOTRIN 325 MG TAB) Indications: Coronary atherosclerosis of [place] coronary artery Take one(1) tablet daily. 0 05/10/2010 Active Problems Active Problems Problem Classification Problem Date Documented Da te Episodic/Chronic Cancer of bladder (3 sources) Malignant tumor of urinary bladder; Translations: [Malignant neoplasm of bladder, unspecified] Onset: 07-18-2023 07-18-2023 Chronic Complication of device; implant or graft (3 sources) Obstructed indwelling urinary catheter; Translations: [Other mechanical complication of indwelling urethral catheter, initial encounter] Onset: 07-18-2023 07-18-2023 Episodic Coronary atherosclerosis and other heart disease (20 sources) Coronary atherosclerosis; Translations: [Atherosclerotic heart disease of [place] coronary artery with unspecified angina pectoris] Onset: [...] lower urinary tract symptoms] Onset: 11-22-2022 Chronic Other diseases of bladder and urethra (3 sources) Disorder of bladder; Translations: [Bladder disorder, unspecified] Onset: 07-18-2023 07-18-2023 Chronic Other skin disorders (1 source) Skin nodule; Translations: [Localized swelling, mass and lump, unspecified] Episodic Past or Other Problems Problem Classification Problem Date Documented Da te Episodic/Chronic Diabetes mellitus without complication (20 sources) Increased glucose level; Translations: [Other abnormal glucose] Onset: 07-14-2014 07-14-2014 Episodic Genitourinary symptoms and ill-defined conditions (9 sources) Scalding pain on urination ; Translations: [Dysuria] Onset: 12-13-2022 Episodic Neoplasms of unspecified nature or uncertain behavior (4 sources) Neoplasm of bladder; Translations: [Neoplasm of unspecified behavior of bladder] Onset: 05-11-2023 04-20-2023 Episodic Results Test Name Value Interpretation Reference Range Facil ity Vital Signs Date Time Vital Sign Value Performing Clinician Faci lity 04-20-2023 13:40-0400 Body weight 76.79 kg Haley Lucio MD Work Phone: [facility] 04-20-2023 13:40-0400 Diastolic blood pressure 74 mm[Hg] Haley Lucio MD Work Phone: [facility] 04-20-2023 13:40-0400 Heart rate 76 /min Haley Lucio MD Work Phone: [facility] 04-20-2023 13:40-0400 Respiratory rate 16 /min Haley Lucio MD Work Phone: [facility] 04-20-2023 13:40-0400 Systolic blood pressure 122 mm[Hg] Haley Lucio MD Work Phone: [facility] 12-09-2022 15:12-0400 Diastolic blood pressure 82 mm[Hg] Haley Lucio MD Work Phone: [facility] 12-09-2022 15:12-0400 Systolic blood pressure 144 mm[Hg] Haley Lucio MD Work Phone: [facility] 12-09-2022 15:10-0400 Body weight 74.84 kg Haley Lucio MD Work Phone: [facility] 12-09-2022 15:10-0400 Heart rate 80 /min Haley Lucio MD Work Phone: [facility] 12-09-2022 15:10-0400 Respiratory rate 16 /min Haley Lucio MD Work Phone: [facility] 01-11-2022 14:07-0400 Body weight 84.46 kg Haley Lucio MD Work Phone: [facility] 01-11-2022 14:07-0400 Diastolic blood pressure 80 mm[Hg] Haley Lucio MD Work Phone: [facility] 01-11-2022 14:07-0400 Heart rate 68 /min Haley Lucio MD Work Phone: [facility] 01-11-2022 14:07-0400 Respiratory rate 16 /min Haley Lucio MD Work Phone: [facility] 01-11-2022 14:07-0400 Systolic blood pressure 150 mm[Hg] Haley Lucio MD Work Phone: [facility] Encounters Encounter Date Encounter Type Care Provider Facility Start: 09-27-2023 Telephone encounter Haley yu MD Work Phone: [facility] Procedures Date Procedure Procedure Detail Performing Clinician Start: 04-20-2023 Ecg routine ecg w/le ast 12 lds i&r only [facility] Provider Start: 12-09-2022 Urnls dip stick/tabl et rgnt auto w/o microscopy Haley Lucio MD Work Phone: Start: 01-20-2021 Adult depression screening assessment Haley Lucio MD Work Phone: Plan of Treatment Date Care Activity Detail Author Start: 04-20-2024 ANNUAL PCP TEAM FLOOR LAYER APPRENTICE JONE DISEASE VISIT ANNUAL PCP TEAM CHRONIC DISEASE VISIT [facility] Start: 04-20-2024 BP CONTROLLED (<130/80) BP CONTROLLE D (<130/80) [facility] Start: 04-03-2024 Glaucoma screening Dilated Retinal E xam [facility] Start: 04-03-2024 Hepatitis C antibody , confirmatory test DILATED RETINAL EXAM [facility] Start: 03-10-2024 ANNUAL PCP TEAM FLOOR LAYER APPRENTICE JONE DISEASE VISIT ANNUAL PCP TEAM CHRONIC DISEASE VISIT [facility] Start: 12-10-2023 ANNUAL PCP TEAM FLOOR LAYER APPRENTICE JONE DISEASE VISIT ANNUAL PCP TEAM CHRONIC DISEASE VISIT [facility] Start: 12-10-2023 COLORECTAL CANCER SCREENING COLORECTAL CANCER SCREENING [facility] Immunizations Immunization Date Immunization Notes Care Provider Fa cility 04-23-2020 influenza, high dose seasonal, preservative-free Haley Lucio MD Work Phone: [facility] 04-23-2020 influenza virus vacc ine, unspecified formulation Haley Lucio MD Work Phone: [facility] 05-07-2019 influenza, high dose seasonal, preservative-free Haley Lucio MD Work Phone: [facility] 05-07-2019 pneumococcal polysaccharide vaccine, 23 valent Haley Lucio MD Work Phone: [facility] 05-01-2018 influenza, high dose seasonal, preservative-free Haley Lucio MD Work Phone: [facility] 05-01-2018 pneumococcal conjuga te vaccine, 13 valent Halye Lucio MD Work Phone: [facility] 06-01-2016 influenza, high dose seasonal, preservative-free Haley Lucio MD Work Phone: [facility] 06-30-2014 influenza, seasonal, injectable Haley Lucio MD Work Phone: [facility] 07-16-2013 influenza virus vacc ine, unspecified formulation Haley Lucio MD Work Phone: [facility] Work Phone: 06-27-2012 influenza virus vacc ine, unspecified formulation Haley Lucio MD Work Phone: [facility] 06-27-2012 tetanus toxoid, redu guero diphtheria toxoid, and acellular pertussis vaccine, adsorbed Haley Lucio MD Work Phone: [facility] Work Phone: Payers Date Payer Category Payer Medicare [id number] 2019 Unknown MMO MMO MEDICARE SUPPLEMENT [id number] 2019-Present [phone] [address] [place] [address] Indemnity [id number] 2019 Unknown MMO MMO MEDICARE SUPPLEMENT [id number] 2019-Present [phone] [address] [place] [address] Indemnity [id number] 2006 Medicare MEDICARE MEDICAR E A AND B [id number] 2006-Present [phone] [address] [address] [place] [address] Medicare [id number] 2006 Medicare MEDICARE MEDICAR E A AND B [id number] 2006-Present [phone] [place] [address] Medicare [id number] 2006 Medicare [id number] Social History Date Type Detail Facility Start: 10-04-2018 End: 12-09-2022 Tobacco smoking status NHIS Ex-smoker [facility] in End: 05-23-2006 History of tobacco use Current smoker [facility] Start: 01-25-2021 End: 06-26-2023 Alcohol intake Current non-drinker of alcohol (finding) [facility] Start: 07-20-2020 End: 12-08-2022 History SDOH Alcohol Frequency 2 [facility] Start: 07-20-2020 End: 12-08-2022 History SDOH Alcohol Std Drinks 1 [facility] Start: 11-11-2019 End: 12-08-2022 History SDOH Social Connections Phone 5 [facility] Start: 11-11-2019 End: 12-08-2022 History SDOH Social Connections Living 4 [facility] Start: 07-20-2020 End: 12-08-2022 History SDOH Physical Activity DPW 0 [facility] Start: 11-10-2019 Education 12 [facility] Start: 1950 Sex Assigned At Not on file [facility] Start: 01-01-2022 End: 01-11-2022 Exposure to SARS-CoV-2 (event) Not sure [facility] End: 05-23-2006 History of tobacco use Cigarette Smoker [facility] Start: 10-04-2018 End: 12-09-2022 Tobacco use and exposure Smokeless tobacco non-user [facility] Start: 12-08-2022 History SDOH Alcohol Frequency 98 [facility] Start: 12-08-2022 End: 03-10-2023 [facility] Start: 12-08-2022 End: 03-10-2023 Social connection and isolation panel [facility] Active Member of [facility] bs or Organizations Not on file [facility] Are you now , , , , never or living with a partner? [facility] How often do you hav e 6 or more drinks on 1 occasion? Never [facility] Do you feel stress - tense, restless, nervous, or anxious, or unable to sleep at night because your mind is troubled all the time - these days [OSQ] Not at all [facility] (I/We) worried wheth er (my/our) food would run out before (I/we) got money to buy more. Never true [facility] In the past 12 month s, was there a time when you were not able to pay the mortgage or rent on time? No [facility] Clinical Notes 01-05-2022 to 09-27-2023 Telephone Encounter - Dolores Welch RN - 09/27/2023 9:19 AM ESTTelephone Encounter - Sherin Hooker Ma - 07/21/2023 8:25 AM ESTTelephone Encounter - Sherri Milian Ma - 07/20/2023 10:34 AM EST Note Date & Type Note Facility 09-27-2023 Miscellaneous Notes Echo from [facility] calls and is requesting office notes and EKG results from 03/2023 to be faxed to [phone]. Faxed as requested. Dolores Welch RN documented in this encounter [facility] 07-21-2023 Miscellaneous Notes Form completed and faxed back to information below. Sherin Hooker Ma Type of letter/form/fax request - [facility] Form received from fax on 1 floor and placed on MD desk (Dr. Lucio) for completion. Completed form needs to be faxed to [facility] at [phone]. Route to JESSICA when form completed for processing documented in this encounter [facility] 07-18-2023 Miscellaneous Notes Porsha with [facility] calls to request Demographics be faxed to them so patient can be contacted. Demographics faxed to [phone] per request. Dorothy Ernandez RN Pt notified via [employer] that paperwork has been faxed to number provided. OV and med list with current problems faxed. Sherin Hooker Ma OK to send 12/11 note (printed) and med list/history list Haley Lucio MD documented in this encounter [facility] 04-20-2023 Note HNO ID: [id number] Author: Haley Lucio MD Service: ? Author [...] PAST MEDICAL HISTORY Diagnosis Date Atherosclerosis of [place] coronary artery with angina pectoris, unspecified whether [place] or transplanted heart (HCC) Benign prostatic hyperplasia with lower urinary tract symptoms, symptom details unspecified Burning with urination Coronary atherosclerosis of unspecified type of vessel, [place] or graft Coronary artery disease Hypertension, unspecified [...] reviewed Outside EKG and labs done at [facility] 03/30/[address] Dixon EKG today shows NSR, RBBB, left anterior fascicular block ASSESSMENT/PLAN: 1. Pre-op exam - ICD9: V72.84, ICD10: Z01.818 (primary diagnosis) EKG checked today in office; no acute changes, no cardiac symptoms I feel he is medically cleared for the planned surgery 2. Atherosclerosis of [place] coronary artery with angina pectoris, unspecified whether [place] or transplanted heart (HCC) - ICD9: 414.01, 413.9, ICD10: I25.119 (more content not included)... [facility] 04-20-2023 History of Presen t illness Narrative Chief Complaint Patient presents with: Pre-Op Exam: TUR-BT Dr. Dr. Dixon JARVIS Cheng is a 72 year old male [...] PAST MEDICAL HISTORY Diagnosis Date Atherosclerosis of [place] coronary artery with angina pectoris, unspecified whether [place] or transplanted heart (HCC) Benign prostatic hyperplasia with lower urinary tract symptoms, symptom details unspecified Burning with urination Coronary atherosclerosis of unspecified type of vessel, [place] or graft Coronary artery disease Hypertension, unspecified type Microscopic hematuria 12/09/2022 Mixed hyperlipidemia Hyperlipidemia Type 2 diabetes mellitus with complication, without long-term current use of insulin ([facility]) Previous Surgical History PAST SURGICAL HISTORY Procedure [...] reviewed Outside EKG and labs done at [facility] 03/30/[address] iDxon EKG today shows NSR, RBBB, left anterior fascicular block ASSESSMENT/PLAN: 1. Pre-op exam - ICD9: V72.84, ICD10: Z01.818 (primary diagnosis) EKG checked today in office; no acute changes, no cardiac symptoms I feel he is medically cleared for the planned surgery 2. Atherosclerosis of [place] coronary artery with angina pectoris, unspecified whether [place] or transplanted heart (HCC) - ICD9: 414.01, 413.9, ICD10: I25.119 Clinically stable, no activity symptoms or limitations - ECG COMPLETE Pt cleared for surgery. Dr. Dixon's office notified, letter and copy of today's visit faxed to their office. I agree with the Chief Complaint, ROS, and Past Histories independently gathered by the clinical support dba and the remaining scribed note accurately describes [...] Sherri Milian Ma documented in this encounter [facility] 04-10-2023 Miscellaneous Notes Jacy with [facility] calls for a copy of EKG on pt's chart. Jacy states it is needed for a comparison to EKG done there. EKG faxed to: [phone]. Cande Martines LPN documented in this encounter [facility] 03-10-2023 Note HNO ID: [id number] Author: Haley Lucio MD Service: ? Author Type: Physician Type: Progress Notes Filed: 03/10/2023 2:00 PM Note Text: Medical B eligibilty date 2014 Date of last exam 01/11/2022 PAST MEDICAL HISTORY Diagnosis Date Atherosclerosis of [place] coronary artery with angina pectoris, unspecified whether [place] or transplanted heart (HCC) Benign prostatic hyperplasia with lower urinary tract symptoms, symptom details unspecified Burning with urination Coronary atherosclerosis of unspecified type of vessel, [place] or graft Coronary artery disease Hypertension, unspecified type Microscopic hematuria 12/09/2022 Mixed hyperlipidemia Hyperlipidemia Type 2 diabetes mellitus with complication, without long-term current use of insulin (HCC) PAST SURGICAL HISTORY Procedure Laterality Date LEFT [...] Past Histories independently gathered by the clinical support dba and the remaining scribed note accurately describes my personal service to the patient. (more content not included)... [facility] 02-24-2023 Miscellaneous Notes The following approved medication requests have been transmitted electronically. Requested Prescriptions Signed Prescriptions Disp Refills gabapentin (NEURONTIN) 300 mg capsule 90 capsule 1 Sig: Take 1 capsule by mouth daily at bedtime for 90 days. Rupal De La Torre APRN.CNP documented in this encounter [facility] 12-19-2022 Miscellaneous Notes Service Seeking message sent to pt notifying him that all referral paperwork has been faxed to Dr. Dixon's office at [facility] at F#: [phone]. Referral paperwork faxed. Sherin Hooker Ma documented in this encounter [facility] 12-16-2022 Note HNO ID: [id number] Author: Louis Shin PA-C Service: ? Author Type: Physician Manager Diesel Type: Progress Notes Filed: 12/16/2022 6:06 PM Note Text: [facility] NEW CONSULT PATIENT CLINIC NOTE SERVICE [...] have the work-up with Dr. Dixon at [facility] due his limited transportation If for any [...] ICD10: R31.29 work-up with Dr. Dixon at [facility] due his limited transportation If for any reason he can get an appointment he will call and reschedule for hematuria work-up HILTON Amin, CHRISSY, LUIS MIGUEL [facility] 12-16-2022 Note HNO ID: [id number] Author: Albina Mendes LPN Service: ? Author Type: ? Type: Progress Notes Filed: 12/16/2022 6:06 PM Note Text: Verified name and date of . CC Post Void Residual HPI: Verena Cheng is a 72 year old male. The patient is here now for an appointment with HILTON Amin MT, OTONIEL. Procedure: Explained procedure to patient and verbalizes understanding. Performed a PVR. Patient urinated and instructed to empty bladder as much as possible just prior to having PVR done using bladder ultrasound scanner. Results of scan: 0 mL The patient tolerated the procedure well. Plan: Appointment with Louis. [facility] 12-13-2022 Note HNO ID: [id number] Author: Evelyn Bradford RDMS Service: ? Author Type: Traffic Division Commanding Officer Type: Progress Notes Filed: 12/13/2022 2:00 PM [...] RDMS RVT December 13, 2022 1:59 PM [facility] 12-09-2022 Note HNO ID: [id number] Author: Haley Lucio MD Service: ? Author [...] Coronary atherosclerosis of unspecified type of vessel, [place] or graft Coronary artery disease Mixed hyperlipidemia [...] BUN 11/22/2022 21 (more content not included)... [facility] 12-09-2022 Instructions Sherin Hooker Ma - 12/09/2022 3:27 PM EDT Referral to Urology, Dr. Dixon. We will fax referral paperwork to his office. Generally we have you wait a couple of days to hear from them to schedule. If you do not hear from them call them at [phone]. Start Losartan 25 mg once daily to help reduce your blood pressure and help protect kidneys. documented in this encounter [facility] 12-09-2022 History of Presen t illness Narrative [...] Coronary atherosclerosis of unspecified type of vessel, [place] or graft Coronary artery disease Mixed hyperlipidemia [...] Goal of BP <130/80 4. Atherosclerosis of [place] coronary artery with angina pectoris, unspecified whether [place] or transplanted heart (HCC) - ICD9: 414.01, [...] Past Histories independently gathered by the clinical support dba and the remaining scribed note accurately describes [...] Sherin Hooker Ma documented in this encounter [facility] 11-10-2022 Note Patient Outreach (NE TNAV) VERENA CHENG ([id number]) 1950 M Date Time Provider Department 11/10/22 RANDALL KARIMI During your visit today, we recorded the following information about you: Randall Karimi MA 11/10/2022 3:46 PM Signed POPULATION HEALTH NAVIGATION OUTREACH Action/ No answer mychart message sent ANNUAL MEDICARE WELLNESS INFLUENZA( COLORECTAL CANCER SCREENING due on 01/24/2020 Patient Identified by Name and : NO Outreach Outcome/Action Unable to reach patient: Phone number not valid / voicemail full MyChart message sent Did you use a PCP [...] Population Health Navigation Outreach [3910] Cmt: ACO LEYLA PCSA Prescriptions as of 11/10/2022 - finasteride [...] HYPERLIPIDEMIA NEC/NOS [E78.5] 12/21/2006 Coronary Atherosclerosis of [place] Coronary Art*12/21/2006 Elevated glucose [R73.09] 07/14/2014 Type 2 diabetes mellitus with complication, wit*10/04/2018 Encounter Status:Closed by RANDALL KARIMI on 11/10/22 [facility] 11-10-2022 Note HNO ID: [id number] Author: Randall Karimi MA Service: ? Author Type: Animal Care Giver Type: Progress Notes Filed: 11/10/2022 3:46 PM Note Text: POPULATION HEALTH NAVIGATION OUTREACH Action/FYI No answer mychart message sent ANNUAL MEDICARE WELLNESS INFLUENZA( COLORECTAL CANCER SCREENING due on 01/24/2020 Patient Identified by Name and : NO Outreach Outcome/Action Unable to reach patient: Phone number not valid / voicemail full MyChart message sent Did you use a PCP [...] Karimi MA November 10, 2022 10:55 AM [facility] 11-10-2022 History of Presen t illness Narrative POPULATION HEALTH NAVIGATION OUTREACH Action/FYI No answer mychart message sent ANNUAL MEDICARE WELLNESS INFLUENZA( COLORECTAL CANCER SCREENING due on 01/24/2020 Patient Identified by Name and : NO Outreach Outcome/Action Unable to reach patient: Phone number not valid / voicemail full MyChart message sent Did you use a PCP [...] 2022 10:55 AM documented in this encounter [facility] 09-13-2022 History of Presen t illness Narrative POPULATION HEALTH NAVIGATION OUTREACH Action/I Integrated biometrics [employer] MESSAGE SENT COLORECTAL CANCER SCREENING due on [...] 2022 7:57 AM documented in this encounter [facility] 07-05-2022 Miscellaneous Notes Addended by: JOSEPHINE AVILA [...] Sherin Hooker Ma documented in this encounter [facility] 01-14-2022 Miscellaneous Notes Pt sent [employer] message with all information below. If questions [...] questions. Thank you. Rupal De La Torre APRN.SPECIAL NEEDS NANNY documented in this encounter [facility] 01-11-2022 Miscellaneous Notes Addended by: HALEY LUCIO on: 01/11/2022 02:38 PM Modules accepted: Orders documented in this encounter [facility] 01-11-2022 History of Presen t illness Narrative [...] was also referred to Dr. Dixon at [facility] Urology, but wanted to trial the additional [...] daily, denies any issues with medication. S/P PR in 1997, did not tolerate other cardiac mes. Pain: Hx of chronic back pain. Has been given muscle relax, Norflex in the past but he was unable to afford it. Past medical history, appointments, medications, allergies reviewed. Previous Medical History PAST MEDICAL HISTORY Diagnosis Date Coronary atherosclerosis of unspecified type of vessel, [place] or graft Coronary artery disease Mixed hyperlipidemia [...] DUTASTERIDE 0.5 MG CAPSULE 3. Atherosclerosis of [place] coronary artery with angina pectoris, unspecified whether [place] or transplanted heart (HCC) - ICD9: 414.01, [...] Past Histories independently gathered by the clinical support dba and the remaining scribed note accurately describes [...] Sherri Milian Ma documented in this encounter [facility] 01-10-2022 Miscellaneous Notes Refills sent. Appointment tomorrow [...] mouth once daily. SUZY: No Josephine Avila APRN.JULIO C Last OV; 01/25/21 Next OV: No upcoming appt. Pt cancelled his 6 month f/u and has not scheduled. Almost 1 year since last seen. Lipitor - 01/25/21 #90 w/3. Avodart - 01/25/21 - #90 w/3. Metformin - 01/08/21 #90 w/3. Flomax - 01/06/21 #90 w/3. Sherin Hooker Ma documented in this encounter [facility] 01-05-2022 Miscellaneous Notes Pt last labs were done in Jul 2021, A1c, Lipid, CMP. Would like to have lab orders placed. Sherri Milian Ma documented in this encounter [facility]* Diagnosis Type 2 diabetes mellitus with complication, without long-term current use of insulin (HCC) Benign prostatic hyperplasia with lower urinary tract symptoms, symptom details unspecified Atherosclerosis of [place] coronary artery with angina pectoris, unspecified whether [place] or transplanted heart (HCC) Hyperlipidemia, mixed Mixed hyperlipidemia documented [facility] this encounter [facility]* Diagnosis Type 2 diabetes mellitus with complication, without long-term current use of insulin (HCC)- Primary Benign prostatic hyperplasia with lower urinary tract symptoms, symptom details unspecified Atherosclerosis of [place] coronary artery with angina pectoris, unspecified whether [place] or transplanted heart (HCC) Hyperlipidemia, mixed Mixed hyperlipidemia documented in this encounter [facility] note* Diagnosis Benign prostatic hyperplasia with lower urinary tract symptoms, symptom details unspecified Type 2 diabetes mellitus with complication, without long-term current use of insulin ([facility]) Atherosclerosis of [place] coronary artery with angina pectoris, unspecified whether [place] or transplanted heart (HCC) Hyperlipidemia, mixed Mixed hyperlipidemia documented in this encounter [facility] note* Diagnosis Type 2 diabetes mellitus with complication, without long-term current use of insulin (HCC)- Primary Benign prostatic hyperplasia with lower urinary tract symptoms, symptom details unspecified Atherosclerosis of [place] coronary artery of [place] heart without angina pectoris Hyperlipidemia, mixed Mixed hyperlipidemia documented in this encounter [facility] note* Diagnosis Type 2 diabetes mellitus with complication, without long-term current use of insulin (HCC)- Primary Hyperlipidemia, mixed Mixed hyperlipidemia Hypertension, unspecified type Atherosclerosis of [place] coronary artery with angina pectoris, unspecified whether [place] or transplanted heart (HCC) Benign prostatic hyperplasia with lower urinary tract symptoms, symptom details unspecified Burning with urination Dysuria Microscopic hematuria Skin nodule Localized superficial swelling, mass, or lump documented in this encounter [facility] note* Diagnosis Pre-op exam- Primary Preoperative examination, unspecified Atherosclerosis of [place] coronary artery with angina pectoris, unspecified whether [place] or transplanted heart (HCC) 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 documented in this encounter [facility] for referral (narrative)* Diagnostic Procedure Only (Routine) - Authorized Specialty Diagnoses / Procedures Referred By Contac t Referred To Contact US IMAGING Diagnoses Microscopic hematuria Procedures US KIDNEY/BLADDER US RETROPERITONEAL REAL TIME W/IMAGE COMPLETE Haley Lucio MD [address] [place] [address] Us Imaging Referral ID Status Reason Start Date Expiration Date Visits Requested Visits Authorized [id number] Authorized Auto-Generat ed Referral 12/09/2022 01/08/2024 1 1 * Consult, Test, Treat (Routine) - Authorized Specialty Diagnoses / Procedures Referred By Pam gonzalez Referred To Contact Urology Diagnoses Microscopic hematuria Procedures CONSULT TO UROLOGY OFFICE/OUTPATIENT [facility] MDM 60-74 MINUTES Haley Lucio MD [address] [place] [address] Referral ID Status Reason Start Date Expiration Date Visits Requested Visits Authorized [id number] Authorized PCP Requested Referral 12/09/2022 12/09/2023 1 1 [facility] for referral (narrative)* Outpatient Procedure (Routine) - Closed Specialty Diagnoses / Procedures Referred By Pam gonzalez Referred To [facility] Diagnoses Atherosclerosis of [place] coronary artery with angina pectoris, unspecified whether [place] or transplanted heart (HCC) Procedures ECG COMPLETE ECG ROUTINE ECG W/LEAST 12 LDS W/I&R Haley Lucio MD [address] [place] [address] [facility] [address] [place] [address] Referral ID Status Reason Start Date Expiration Date V isits Requested Visits Authorized [id number] Closed Auto-Generate d Referral 04/20/2023 04/19/2024 1 1 [facility] Advance Directives No Advanced Directives Records FoundDocuments on File Type Date Recorded Patient International Coordinator Expl anation Advance Directive(s) 04/05/2017 3:16 PM Documents on File Type Date Recorded Patient International Coordinator Expl anation Advance Directive(s) 04/05/2017 3:16 PM [...] or prosecute any alcohol or drug abuse patient.[facility] HealthIn the event this information is protected by the Federal Confidentiality of Alcohol and Drug Abuse Patient Records regulations: The Federal rules restrict any use of the information to criminally investigate or prosecute any alcohol or drug abuse patient.[facility] HealthIn the event this information is protected by the Federal Confidentiality of Alcohol and Drug Abuse Patient Records regulations: The Federal rules restrict any use of the information to criminally investigate or prosecute any alcohol or drug abuse patient.[facility] HealthIn the event this information is protected by the Federal Confidentiality of Alcohol and Drug Abuse Patient Records regulations: The Federal rules restrict any use of the information to criminally investigate or prosecute any alcohol or drug abuse patient.[facility] HealthIn the event this information is protected by the Federal Confidentiality of Alcohol and Drug Abuse Patient Records regulations: The Federal rules restrict any use of the information to criminally investigate or prosecute any alcohol or drug abuse patient.[facility] HealthIn the event this information is protected by the Federal Confidentiality of Alcohol and Drug Abuse Patient Records regulations: The Federal rules restrict any use of the information to criminally investigate or prosecute any alcohol or drug abuse patient.[facility] HealthIn the event this information is protected by the Federal Confidentiality of Alcohol and Drug Abuse Patient Records regulations: The Federal rules restrict any use of the information to criminally investigate or prosecute any alcohol or drug abuse patient.[facility] HealthIn the event this information is protected by the Federal Confidentiality of Alcohol and Drug Abuse Patient Records regulations: The Federal rules restrict any use of the information to criminally investigate or prosecute any alcohol or drug abuse patient.[facility] HealthIn the event this information is protected by the Federal Confidentiality of Alcohol and Drug Abuse Patient Records regulations: The Federal rules restrict any use of the information to criminally investigate or prosecute any alcohol or drug abuse patient.[facility] HealthIn the event this information is protected by the Federal Confidentiality of Alcohol and Drug Abuse Patient Records regulations: The Federal rules restrict any use of the information to criminally investigate or prosecute any alcohol or drug abuse patient.[facility] HealthIn the event this information is protected by the Federal Confidentiality of Alcohol and Drug Abuse Patient Records regulations: The Federal rules restrict any use of the information to criminally investigate or prosecute any alcohol or drug abuse patient.[facility] HealthIn the event this information is protected by the Federal Confidentiality of Alcohol and Drug Abuse Patient Records regulations: The Federal rules restrict any use of the information to criminally investigate or prosecute any alcohol or drug abuse patient.[facility] HealthIn the event this information is protected by the Federal Confidentiality of Alcohol and Drug Abuse Patient Records regulations: The Federal rules restrict any use of the information to criminally investigate or prosecute any alcohol or drug abuse patient.[facility] HealthIn the event this information is protected by the Federal Confidentiality of Alcohol and Drug Abuse Patient Records regulations: The Federal rules restrict any use of the information to criminally investigate or prosecute any alcohol or drug abuse patient.[facility] HealthIn the event this information is protected by the Federal Confidentiality of Alcohol and Drug Abuse Patient Records regulations: The Federal rules restrict any use of the information to criminally investigate or prosecute any alcohol or drug abuse patient.[facility] HealthIn the event this information is protected by the Federal Confidentiality of Alcohol and Drug Abuse Patient Records regulations: The Federal rules restrict any use of the information to criminally investigate or prosecute any alcohol or drug abuse patient.[facility] HealthIn the event this information is protected by the Federal Confidentiality of Alcohol and Drug Abuse Patient Records regulations: The Federal rules restrict any use of the information to criminally investigate or prosecute any alcohol or drug abuse patient.[facility] HealthIn the event this information is protected by the Federal Confidentiality of Alcohol and Drug Abuse Patient Records regulations: The Federal rules restrict any use of the information to criminally investigate or prosecute any alcohol or drug abuse patient.[facility] HealthIn the event this information is protected by the Federal Confidentiality of Alcohol and Drug Abuse Patient Records regulations: The Federal rules restrict any use of the information to criminally investigate or prosecute any alcohol or drug abuse patient.[facility] HealthIn the event this information is protected by the Federal Confidentiality of Alcohol and Drug Abuse Patient Records regulations: The Federal rules restrict any use of the information to criminally investigate or prosecute any alcohol or drug abuse patient.[facility] Care Teams (unrecognized sec tion and content) Administrative Accountant Relationship Specialty Start Date End Date Haley Lucio MD [address] [place] [address] PCP - General 12/08/06 Administrative Accountant Relationship Specialty Start Date End Date Haley Lucio MD [facility] [place] [address] PCP - General 12/08/06 Administrative Accountant Relationship Specialty Start Date End Date Haley Lucio MD [facility] [place] [address] PCP - General 12/08/06 Administrative Accountant Relationship Specialty Start Date End Date Haley Lucio MD [facility] [place] [address] PCP - General 12/08/06 Administrative Accountant Relationship Specialty Start Date End Date Haley Lucio MD [facility] [place] [address] PCP - General 12/08/06 Administrative Accountant Relationship Specialty Start Date End Date Haley Lucio MD [address] [place] [id number] PCP - General 12/08/06 Administrative Accountant Relationship Specialty Start Date End Date Haley Lucio MD [address], [place] [id number] PCP - General 12/08/06 Administrative Accountant Relationship Specialty Start Date End Date Haley Lucio MD [address], [place] [address] PCP - General 12/08/06 Administrative Accountant Relationship Specialty Start Date End Date Haley Lucio MD [address], [place] [address] PCP - General 12/08/06 Administrative Accountant Relationship Specialty Start Date End Date Haley Lucio MD [address], [place] [id number] PCP - General 12/08/06 Administrative Accountant Relationship Specialty Start Date End Date Haley Lucio MD [address] [facility] [place] [address] PCP - General 12/08/06 Administrative Accountant Relationship Specialty Start Date End Date Haley Lucio MD [address], [place] [id number] PCP - General 12/08/06 Reason for Visit (unrecogniz ed section and content) Reason Comments Results Reason Onset Date Comments Population Health Navigation Outreach 09/13/2022 [facility] Reason Onset Date Comments Population Health Navigation Outreach 11/10/2022 [facility] Reason Comments Follow Up Reason Comments patient information Reason Comments Pre-Op Exam TUR-BT Dr. Dr. Deborah jimenez Reason Comments hospice/Palliative Order Form Reason Comments Faxed Paperwork (unrecognized sect ion and content) No Status [...] BE BASED ON THE PRIMARY CLINICAL RECORDS. [facility]. provides no warranty or guarantee of the accuracy or completeness of information in this document.
== END | disposition home or self-care (01) ==
LOC: LABSPEC 15:40
PROVIDERS: PCP Family Medicine; Referring Provider Urology; Visit Provider Urology
DX: N30.20 Other chronic cystitis without hematuria (principal)
CPT/HCPCS: 88305

== ENCOUNTER → 2023-12-14 | Outpatient (CLI) | payer MEDICARE, OTHER, SELFPAY ==
[2023-12-14 09:52] LABS: Hematocrit 35.8 % (40-54); Hemoglobin 12.1 g/dL (13.0-16.5); Mean Corp Hgb Conc 33.8 g/dL (32-36); Mean Corpuscular Hgb 32.5 pg (27.0-32.0); Mean Corpuscular Volume 96.2 fL (80-94); Mean Platelet Vol. 9.4 fl (6.2-12.0); Platelet Count 216 K/mm3 (150-450); RBC Distribution Width CV 12.3 % (11.6-14.6); RBC Distribution Width SD 42.5 fl (35.1-43.9); Red Blood Count 3.72 M/mm3 (4.6-6.2); White Blood Count 6.8 K/mm3 (4.4-11.0)
[2023-12-14 10:28] LABS: Anion Gap 7 (5-15); BUN 21 mg/dL (7-18); BUN/Creat Ratio 21.5 RATIO (10-20); Calcium,Total 9.1 mg/dL (8.5-10.1); Chloride 107 mmol/L (98-107); Creatinine, Serum 0.98 mg/dL (0.70-1.30); EST Glomerular Filtration Rate 80 mL/min (>60); Est Glom Filt Rate - Afr Amer 97 mL/min (>60); Glucose 141 mg/dL (74-106); Potassium 4.1 mmol/L (3.5-5.1); Sodium Level 140 mmol/L (136-145)
== END | disposition home or self-care (01) ==
LOC: LAB 08:48
PROVIDERS: PCP Family Medicine; Referring Provider Otolaryngology; Visit Provider Otolaryngology
DX: Z01.818 Encounter for other preprocedural examination (principal)
CPT/HCPCS: 36415; 80048; 85027

== ENCOUNTER → 2024-02-13 | Outpatient (CLI) | payer MEDICARE, OTHER, SELFPAY ==
--- NOTE | 2024-02-13 13:09 | CT_ITS ---
STUDY: CT CHEST, ABDOMEN T PELVIS WITH CONTRAST REASON FOR EXAM: Male, 73 years old. eval for metastatic disease or recurrent bladder cancer. RADIATION DOSAGE (If Supplied By Facility): CTDIvol = ( 16.54 ) mGy, DLP = ( 2130.08 ) mGycm TECHNIQUE: Transaxial imaging was performed following intravenous administration of IV 100mL Isovue-300. Individualized dose optimization techniques were used for this CT. COMPARISON: Comparison is made with prior CT scan of the abdomen and pelvis dated April 28, 2023. FINDINGS: CHEST There is a 1.7 cm enlarged lymph node in the posterior aspect of the right axilla. Fat-containing lymph nodes are seen in the left axilla. The lungs are normal. There is no demonstrated pleural abnormality. There are calcifications of the coronary arteries. Normal mediastinum. Normal hilar regions. Normal unenhanced pulmonary arteries. There is atherosclerotic calcification of the aortic arch. There are multi-level degenerative changes of the thoracic spine. ABDOMEN There is decreased attenuation of the liver consistent with steatosis. Normal gallbladder and extrahepatic biliary system. There are multiple benign calcified granulomata of the spleen. Normal pancreas. There is a small, circumscribed, smooth, low attenuation left adrenal mass, consistent with an adrenal adenoma. This is unchanged. Normal right adrenal gland. Normal right kidney. Mild degree of left hydronephrosis and hydroureter down to the insertion into the bladder on the left side. Normal visualized stomach. Normal small intestine. Normal colon. The appendix is visualized and appears normal. There is diffuse atherosclerotic calcification of the abdominal aorta and its major visceral branches, without a demonstrated aneurysm. Normal inferior vena cava. Normal retroperitoneum. Normal abdominal wall. There are diffuse degenerative changes of the visualized lumbar spine. PELVIS Diffuse heterogeneous bladder wall thickening. Prostatic enlargement. The prostate measures 3.4 cm x 4 cm. Normal visualized small intestine. Normal visualized colon. There is no pelvic fluid. There is no pelvic lymphadenopathy or mass lesion. There is diffuse atherosclerotic calcification of the pelvic arteries. CT/CT Chest, Abd, Pel w/Contrast IMPRESSION: Diffuse bladder wall thickening. Left-sided hydronephrosis and hydroureter down to the insertion at the left ureterovesical junction. Electronically Signed: Diego Horne MD at 15:05 EDT ,
[2024-02-13 13:49] LABS: CREATININE FINGERSTICK < 1.0 mg/dL (0.70-1.30); EGFR FINGERSTICK > 60.0000 mL/min (>60)
== END | disposition home or self-care (01) ==
LOC: CT 13:05
PROVIDERS: PCP Family Medicine; Referring Provider Student in an Organized Health Care Education/Training Program; Visit Provider Student in an Organized Health Care Education/Training Program
DX: C67.8 Malignant neoplasm of overlapping sites of bladder (principal)
CPT/HCPCS: 71260; 74177; Q9967

== ENCOUNTER 2025-01-06 15:44 | Outpatient (CLI) | payer MEDICARE, OTHER, SELFPAY ==
--- NOTE | 2025-01-06 10:00 | FLU_PTH ---
PATIENT: VERENA CHENG LOC: [facility] U#:[id number] AGE/SX: 74/M ROOM: RE01/06/[address]: Dr. Garrick Dixon MD : 1950 BED: DIS: 01/06/2025 SPEC #: [id number] RECD: 01/06/25 12:00 STATUS: NATASHA REShae #: [id number] ROSIBEL: 01/06/25 10:[address]: Garrick Dixon DEPT: CYTOLOGY RECD BY: Aba Salas ENTERED: 01/07/25 08:39 SP TYPE: Fluid OTHR DR: Dr. Grady Kraus MD Tissues: Urine Procedures: Special Stain Group II Surgery Specimen Level IV Cytospin Fluid HEADER OPERATION: Not noted PRE-OP DIAGNOSIS: Malignant neoplasm of dome of bladder TISSUE SUBMITTED: A- Urine for cytology - voided DIAGNOSIS CYTOLOGY A. Urine (cytospin): * Atypical urothelial cells. * Acute inflammation. CYTOLOGY STUDY Slides are reviewed. CYTOLOGY GROSS A. Received is 20 ml of yellow-cloudy fluid labeled with the patient's name and and designated per the requisition as urine. Submitted for cytology preparation. Mr 01/07/2025 CPT: 45518
[2025-01-06 15:52] LABS: Cytology, Body Fluid / CSF SEE PATHOLOGY REPORT
== END 2025-01-06 23:59 | disposition home or self-care (01) ==
LOC: LABSPEC 15:45
PROVIDERS: PCP Family Medicine; Referring Provider Urology; Visit Provider Urology
DX: R82.90 Unspecified abnormal findings in urine (principal); N30.90 Cystitis, unspecified without hematuria
CPT/HCPCS: 88108; 88305; 88313